=== PATIENT | female | born 1955 | race Caucasian/White ===

== ENCOUNTER 2017-11-01 17:32 | Emergency (ER) | payer OTHER ==
[2017-11-01 19:53] LABS: Basophils % (A) 0 %; Eosinophils # (A) 0.1 k/uL (0-0.7); Eosinophils % (A) 1 %; HCT 42.1 % (34.0-46.0); HGB 14.2 gm/dL (11.4-16.0); Lymphocytes % (A) 17 %; MCHC 33.6 g/dL (31.0-37.0); MCV 92.3 fL (80.0-100.0); Mean Platelet Volume 6.1; Monocytes # (A) 0.4 k/uL (0-1.0); Monocytes % (A) 6 %; Neutrophils # (A) 4.6 k/uL (1.3-7.7); Neutrophils % (A) 75 %; Platelet Count 488 k/uL (150-450); RBC 4.56 m/uL (3.80-5.40); RDW 12.5 % (11.5-15.5); WBC 6.2 k/uL (3.8-10.6)
[2017-11-01 20:02] LABS: ALT 16 U/L (9-52); AST 24 U/L (14-36); Alkaline Phosphatase 95 U/L (38-126); Anion Gap 12 mmol/L; Blood Urea Nitrogen 9 mg/dL (7-17); Calcium 9.8 mg/dL (8.4-10.2); Carbon Dioxide 30 mmol/L (22-30); Chloride 96 mmol/L (98-107); Glucose 104 mg/dL (74-99); Sodium 138 mmol/L (137-145); Total Bilirubin 0.4 mg/dL (0.2-1.3); Total Protein 7.2 g/dL (6.3-8.2)
[2017-11-01 20:06] LABS: D-Dimer 0.33 mg/L FEU (<0.60); INR 1.1 (<1.2); Partial Thromboplastin Time 23.8 sec (22.0-30.0); Prothrombin Time 10.5 sec (9.0-12.0)
--- NOTE | 2017-11-01 20:16 | ED ---
General Adult HPI - General Chief complaint: Recheck/Abnormal Lab/Rx Stated complaint: Swollen ankles Time Seen by Provider: 11/01/17 19:09 Source: patient Mode of arrival: ambulatory Limitations: no limitations - History of Present Illness Initial comments: This patient is 61-year-old woman who presents to be evaluated for swelling of her hands and feet. She states that this is something that is been going on since early September. She noticed it when she was in [place] for the winter. She states that initially she noticed her right hand was fitting tighter until bowling ball. Subsequent to that she noticed some swelling bilaterally of the feet. She has not sought any medical attention. The patient denies any associated symptoms. She is not having dyspnea or cough. She finally decided to be seen today after family members urged her to be seen. Onset/Timin -: month(s) Location: upper extremity, lower extremity Consistency: constant Improves with: none Worsens with: none Associated Symptoms: denies other symptoms - Related Data Home Medications Medication Instructions Recorded Confirmed Cholecalciferol [Vitamin D3] 1,000 unit PO DAILY 11/01/17 11/01/17 Cinnamon Bark [Cinnamon] 500 mg PO DAILY 11/01/17 11/01/17 Multivitamins, Thera [Multivitamin 1 tab PO DAILY 11/01/17 11/01/17 (formulary)] diphenhydrAMINE HCL [Benadryl] 25 mg PO HS PRN 11/01/17 11/01/17 Previous Rx's Medication Instructions Recorded Levofloxacin [Levaquin] 500 mg PO DAILY #7 tab 11/01/17 Sulfamethox-Tmp 800-160Mg [Bactrim 1 each PO Q12HR #6 tab 11/01/17 Ds] Allergies Allergy/AdvReac Type Severity Reaction Status Date / Time No Known Allergies Allergy Verified 11/01/17 19:21 Review of Systems ROS Statement: Those systems with pertinent positive or pertinent negative responses have been documented in the HPI. ROS Other: All systems not noted in ROS Statement are negative. Constitutional: Denies: fever, chills, weakness Respiratory: Denies: cough, dyspnea Cardiovascular: Denies: chest pain, palpitations Gastrointestinal: Denies: abdominal pain, nausea, vomiting Genitourinary: Denies: dysuria, hematuria Musculoskeletal: Denies: back pain Skin: Denies: rash Neurological: Denies: headache Past Medical History Past Medical History: No Reported History History of Any Multi-Drug Resistant Organisms: None Reported Past Surgical History: No Surgical Hx Reported Past Psychological History: No Psychological Hx Reported Smoking Status: Current every day smoker Past Alcohol Use History: Occasional Past Drug Use History: None Reported General Exam Limitations: no limitations General appearance: alert, in no apparent distress, cachectic Head exam: Present: atraumatic, normocephalic Eye exam: Present: normal appearance. Absent: scleral icterus, conjunctival injection ENT exam: Present: normal oropharynx Neck exam: Present: normal inspection, full ROM Respiratory exam: Present: normal lung sounds bilaterally. Absent: respiratory distress, wheezes, rales, rhonchi, stridor Cardiovascular Exam: Present: normal rhythm, tachycardia (The rate is 104 on exam), normal heart sounds. Absent: systolic murmur, diastolic murmur, rubs, gallop GI/Abdominal exam: Present: soft. Absent: distended, tenderness, guarding, rebound, mass Extremities exam: Present: normal inspection, normal capillary refill, pedal edema (There is only trace edema at the ankle B). Absent: calf tenderness Back exam: Present: normal inspection Neurological exam: Present: alert Skin exam: Present: warm, dry, intact, normal color. Absent: rash Course Vital Signs 11/01/17 11/01/17 11/01/17 18:56 19:58 21:00 Temperature 99.4 F Pulse Rate 122 H 120 H 115 H Respiratory 18 19 16 Rate Blood Pressure 128/65 119/72 112/62 O2 Sat by Pulse 97 96 96 Oximetry EKG Findings - EKG Results: EKG: interpreted by JOSEFINA, sinus rhythm, normal axis, normal QRS, normal ST/T EKG shows: tachycardia (Rate approximately 118 bpm) Medical Decision Making - Lab Data Result diagrams: 11/01/17 19:41 11/01/17 19:41 Lab Results 11/01/17 11/01/17 11/01/17 Range/Units 19:41 19:41 19:41 WBC 6.2 (3.8-10.6) k/uL RBC 4.56 (3.80-5.40) m/uL Hgb 14.2 (11.4-16.0) gm/dL Hct 42.1 (34.0-46.0) % MCV 92.3 (80.0-100.0) fL MCH 31.0 (25.0-35.0) pg MCHC 33.6 (31.0-37.0) g/dL RDW 12.5 (11.5-15.5) % Plt Count 488 H (150-450) k/uL Neutrophils % 75 % Lymphocytes % 17 % Monocytes % 6 % Eosinophils % 1 % Basophils % 0 % Neutrophils # 4.6 (1.3-7.7) k/uL Lymphocytes # 1.0 (1.0-4.8) k/uL Monocytes # 0.4 (0-1.0) k/uL Eosinophils # 0.1 (0-0.7) k/uL Basophils # 0.0 (0-0.2) k/uL PT (9.0-12.0) sec INR (<1.2) APTT (22.0-30.0) sec D-Dimer (<0.60) mg/L FEU Sodium 138 (137-145) mmol/L Potassium 4.0 (3.5-5.1) mmol/L Chloride 96 L (98-107) mmol/L Carbon Dioxide 30 (22-30) mmol/L Anion Gap 12 mmol/L BUN 9 (7-17) mg/dL Creatinine 0.50 L (0.52-1.04) mg/dL Est GFR (CKD-EPI)AfAm >90 (>60 ml/min/1.73 sqM) Est GFR (CKD-EPI)NonAf >90 (>60 ml/min/1.73 sqM) Glucose 104 H (74-99) mg/dL Plasma Lactic Acid [place] 0.8 (0.7-2.0) mmol/L Calcium 9.8 (8.4-10.2) mg/dL Magnesium 2.0 (1.6-2.3) mg/dL Total Bilirubin 0.4 (0.2-1.3) mg/dL AST 24 (14-36) U/L ALT 16 (9-52) U/L Alkaline Phosphatase 95 (38-126) U/L Troponin I (0.000-0.034) ng/mL NT-Pro-B Natriuret Pep pg/mL Total Protein 7.2 (6.3-8.2) g/dL Albumin 4.0 (3.5-5.0) g/dL TSH 0.658 (0.465-4.680) mIU/L Urine Color Urine Appearance (Clear) Urine pH (5.0-8.0) Ur Specific [place] (1.001-1.035) Urine Protein (Negative) Urine Glucose (UA) (Negative) Urine Ketones (Negative) Urine Blood (Negative) Urine Nitrite (Negative) Urine Bilirubin (Negative) Urine Urobilinogen (<2.0) mg/dL Ur Leukocyte Esterase (Negative) Urine RBC (0-5) /hpf Urine WBC (0-5) /hpf Ur Squamous Epith Cells (0-4) /hpf Urine Bacteria (None) /hpf Urine Mucus (None) /hpf 11/01/17 11/01/17 11/01/17 Range/Units 19:41 19:41 19:41 WBC (3.8-10.6) k/uL RBC (3.80-5.40) m/uL Hgb (11.4-16.0) gm/dL Hct (34.0-46.0) % MCV (80.0-100.0) fL MCH (25.0-35.0) pg MCHC (31.0-37.0) g/dL RDW (11.5-15.5) % Plt Count (150-450) k/uL Neutrophils % % Lymphocytes % % Monocytes % % Eosinophils % % Basophils % % Neutrophils # (1.3-7.7) k/uL Lymphocytes # (1.0-4.8) k/uL Monocytes # (0-1.0) k/uL Eosinophils # (0-0.7) k/uL Basophils # (0-0.2) k/uL PT 10.5 (9.0-12.0) sec INR 1.1 (<1.2) APTT 23.8 (22.0-30.0) sec D-Dimer 0.33 (<0.60) mg/L FEU Sodium (137-145) mmol/L Potassium (3.5-5.1) mmol/L Chloride (98-107) mmol/L Carbon Dioxide (22-30) mmol/L Anion Gap mmol/L BUN (7-17) mg/dL Creatinine (0.52-1.04) mg/dL Est GFR (CKD-EPI)AfAm (>60 ml/min/1.73 sqM) Est GFR (CKD-EPI)NonAf (>60 ml/min/1.73 sqM) Glucose (74-99) mg/dL Plasma Lactic Acid [place] (0.7-2.0) mmol/L Calcium (8.4-10.2) mg/dL Magnesium (1.6-2.3) mg/dL Total Bilirubin (0.2-1.3) mg/dL AST (14-36) U/L ALT (9-52) U/L Alkaline Phosphatase (38-126) U/L Troponin I <0.012 (0.000-0.034) ng/mL NT-Pro-B Natriuret Pep 546 pg/mL Total Protein (6.3-8.2) g/dL Albumin (3.5-5.0) g/dL TSH (0.465-4.680) mIU/L Urine Color Urine Appearance (Clear) Urine pH (5.0-8.0) Ur Specific [place] (1.001-1.035) Urine Protein (Negative) Urine Glucose (UA) (Negative) Urine Ketones (Negative) Urine Blood (Negative) Urine Nitrite (Negative) Urine Bilirubin (Negative) Urine Urobilinogen (<2.0) mg/dL Ur Leukocyte Esterase (Negative) Urine RBC (0-5) /hpf Urine WBC (0-5) /hpf Ur Squamous Epith Cells (0-4) /hpf Urine Bacteria (None) /hpf Urine Mucus (None) /hpf 11/01/17 Range/Units 20:37 WBC (3.8-10.6) k/uL RBC (3.80-5.40) m/uL Hgb (11.4-16.0) gm/dL Hct (34.0-46.0) % MCV (80.0-100.0) fL MCH (25.0-35.0) pg MCHC (31.0-37.0) g/dL RDW (11.5-15.5) % Plt Count (150-450) k/uL Neutrophils % % Lymphocytes % % Monocytes % % Eosinophils % % Basophils % % Neutrophils # (1.3-7.7) k/uL Lymphocytes # (1.0-4.8) k/uL Monocytes # (0-1.0) k/uL Eosinophils # (0-0.7) k/uL Basophils # (0-0.2) k/uL PT (9.0-12.0) sec INR (<1.2) APTT (22.0-30.0) sec D-Dimer (<0.60) mg/L FEU Sodium (137-145) mmol/L Potassium (3.5-5.1) mmol/L Chloride (98-107) mmol/L Carbon Dioxide (22-30) mmol/L Anion Gap mmol/L BUN (7-17) mg/dL Creatinine (0.52-1.04) mg/dL Est GFR (CKD-EPI)AfAm (>60 ml/min/1.73 sqM) Est GFR (CKD-EPI)NonAf (>60 ml/min/1.73 sqM) Glucose (74-99) mg/dL Plasma Lactic Acid [place] (0.7-2.0) mmol/L Calcium (8.4-10.2) mg/dL Magnesium (1.6-2.3) mg/dL Total Bilirubin (0.2-1.3) mg/dL AST (14-36) U/L ALT (9-52) U/L Alkaline Phosphatase (38-126) U/L Troponin I (0.000-0.034) ng/mL NT-Pro-B Natriuret Pep pg/mL Total Protein (6.3-8.2) g/dL Albumin (3.5-5.0) g/dL TSH (0.465-4.680) mIU/L Urine Color Light Yellow Urine Appearance Cloudy H (Clear) Urine pH 6.0 (5.0-8.0) Ur Specific [place] 1.006 (1.001-1.035) Urine Protein Trace H (Negative) Urine Glucose (UA) Negative (Negative) Urine Ketones Negative (Negative) Urine Blood Moderate H (Negative) Urine Nitrite Negative (Negative) Urine Bilirubin Negative (Negative) Urine Urobilinogen <2.0 (<2.0) mg/dL Ur Leukocyte Esterase Large H (Negative) Urine RBC 6 H (0-5) /hpf Urine WBC 40 H (0-5) /hpf Ur Squamous Epith Cells 3 (0-4) /hpf Urine Bacteria Rare H (None) /hpf Urine Mucus Rare H (None) /hpf Disposition Clinical Impression: Edema, Urinary tract infection, Tachycardia, Pneumonia Disposition: HOME SELF-CARE Condition: Good Instructions: Leg Edema (ED) Prescriptions: Levofloxacin [Levaquin] 500 mg PO DAILY #7 tab Sulfamethox-Tmp 800-160Mg [Bactrim Ds] 1 each PO Q12HR #6 tab Referrals: Blanca Moscoso MD [Primary Care Provider] - 1-2 days
--- NOTE | 2017-11-01 20:27 | XR ---
EXAMINATION TYPE: XR chest 1V portable DATE OF EXAM: 11/01/2017 COMPARISON: NONE HISTORY: Headache TECHNIQUE: Single frontal view of the chest is obtained. FINDINGS: There is some infiltrate in the left upper lobe above the left pulmonary hilum extending t o the lung apex. The other lung posey are clear. Heart size is normal. There is no heart failure. IMPRESSION: Left upper lobe infiltrate consistent with pneumonia.
[2017-11-01 21:12] VITALS: RESP 16
[2017-11-01 21:54] LABS: Appearance,Urine Cloudy (Clear); Bacteria,Urine Rare /hpf; Bilirubin,Urine Negative (Negative); Blood,Urine Moderate (Negative); Color,Urine Light Yellow; Glucose,Urine (UA) Negative (Negative); Ketones,Urine Negative (Negative); Leukocyte Esterase,Urine Large (Negative); Mucus,Urine Rare /hpf; Nitrite,Urine Negative (Negative); Protein,Urine Trace (Negative); RBC,Urine 6 /hpf (0-5); Specific Gravity,Urine 1.006 (1.001-1.035); Squamous Epithelial Cell,Urine 3 /hpf (0-4); Urobilinogen,Urine <2.0 mg/dL (<2.0); WBC,Urine 40 /hpf (0-5)
[2017-11-01] MEDS ORDERED: SULFAMETHOX-TMP 800-160MG 1 EACH TAB PO STA (22:07)
[2017-11-01 22:33] VITALS: BP 119/59; PULSE 100; TEMP 99
== END 2017-11-01 22:33 | disposition home or self-care (01) ==
LOC: EC 17:32
DX: J18.9 Pneumonia, unspecified organism (principal); N39.0 Urinary tract infection, site not specified; R00.0 Tachycardia, unspecified; R60.0 Localized edema; F17.200 Nicotine dependence, unspecified, uncomplicated; Z79.899 Other long term (current) drug therapy
CPT/HCPCS: 36415; 71045; 80053; 81001; 83605; 83735; 83880; 84443; 84484; 85025; 85379; 85610; 85730; 93005; 99284

== ENCOUNTER → 2017-11-18 | Outpatient (CLI) | payer OTHER ==
[2017-11-18 19:22] LABS: ALT 20 U/L (9-52); AST 31 U/L (14-36); Alkaline Phosphatase 100 U/L (38-126); Anion Gap 13 mmol/L; Blood Urea Nitrogen 6 mg/dL (7-17); Calcium 9.5 mg/dL (8.4-10.2); Carbon Dioxide 31 mmol/L (22-30); Chloride 95 mmol/L (98-107); Cholesterol 156 mg/dL (<200); Glucose 105 mg/dL (74-99); HDL Cholesterol 59 mg/dL (40-60); LDL Cholesterol,Calculated 83 mg/dL (0-99); Potassium 4.2 mmol/L (3.5-5.1); Sodium 139 mmol/L (137-145); Total Bilirubin 0.4 mg/dL (0.2-1.3); Triglycerides 71 mg/dL (<150)
[2017-11-18 19:38] LABS: T4, Free (Free Thyroxine) 1.71 ng/dL (0.78-2.19)
[2017-11-18 21:45] LABS: Basophils % (A) 0 %; Eosinophils # (A) 0.1 k/uL (0-0.7); Eosinophils % (A) 1 %; HCT 40.6 % (34.0-46.0); HGB 13.4 gm/dL (11.4-16.0); Lymphocytes # (A) 1.5 k/uL (1.0-4.8); Lymphocytes % (A) 22 %; MCH 31.2 pg (25.0-35.0); MCV 94.5 fL (80.0-100.0); Mean Platelet Volume 7.7; Monocytes # (A) 0.4 k/uL (0-1.0); Monocytes % (A) 7 %; Neutrophils # (A) 4.7 k/uL (1.3-7.7); Neutrophils % (A) 69 %; Platelet Count 513 k/uL (150-450); RBC 4.29 m/uL (3.80-5.40); RDW 12.4 % (11.5-15.5); WBC 6.7 k/uL (3.8-10.6)
== END | disposition home or self-care (01) ==
LOC: MMGSC 14:06
PROVIDERS: ATTEND Family Medicine
DX: Z00.00 Encounter for general adult medical examination without abnormal findings (principal); N39.0 Urinary tract infection, site not specified; R60.0 Localized edema
CPT/HCPCS: 36415; 80053; 80061; 83880; 84439; 84443; 85025; 87086

== ENCOUNTER → 2018-01-01 | Outpatient (CLI) | payer OTHER ==
--- NOTE | 2018-01-02 07:57 | PE ---
EXAMINATION TYPE: PET CT fusion skull to thigh DATE OF EXAM: 01/01/2018 COMPARISON: Chest x-ray November 01, 2017 HISTORY: Solitary pulmonary nodule per order. Abnormal x-ray with multiple nodules. TECHNIQUE: Following the intravenous administration of 13.411 mCi of F-18 FDG, whole body images are performed from the skull base to the midthigh. Images are reviewed on the computer in the coronal, axial, and sagittal planes. Reconstructed rotating images are created on independent workstation and reviewed on the computer. A noncontrast CT is performed in conjunction with the PET scan. SCAN: Initial Scan FINDINGS: SKULL BASE AND NECK: No suspicious hypermetabolic uptake is seen CHEST, MEDIASTINUM, AND HILAR REGION: There is background chronic emphysematous change seen bilateral ly. Throughout the left lung there are irregular areas of reticulation and groundglass opacity with m ore maureen consolidation seen anteriorly and inferiorly, there is involvement of the left upper lobe a nd lingula. There is tiny ametabolic left pleural effusion. There are areas of hypermetabolic uptake near the hilum with max SUV 7.07 axial image 92 and in the periphery of the areas of consolidation pr ominent lateral left upper to midlung. The max SUV is 5.31 centrally in the left lung axial image 84. There is abnormal hypermetabolic prevascular lymph node measuring 1.6 x 1.2 cm axial image 88 with ma x SUV 3.58. No suspicious hypermetabolic uptake is seen in the right lung. ABDOMEN AND PELVIS: There is hypermetabolic left adrenal mass measuring 3.5 x 2.1 cm axial image 142, max SUV is 5.27. Normal excretion in the collecting systems and bladder is present. No additional areas of abnormal hy permetabolic uptake are seen. OSSEOUS STRUCTURES: No suspicious hypermetabolic uptake is present. OTHER CT: Deformity near inferior lateral wall of right maxillary sinus may be product of prior molar tooth and/or surgery. Some calcified left infrahilar lymph nodes are seen. There is 1.8 cm simple appearing cyst right hepatic dome. There is mild calcified plaque in the abdominal aorta. There is linear central IUD in the retroverted uterus. There is multilevel spurring in the spine. There is facet arthropathy lower lumbar levels. IMPRESSION: Findings of nonresolving hypermetabolic left upper and lingular consolidation with left h ilar and AP window involvement along with hypermetabolic left adrenal mass is strongly suspicious for malignancy. Advise bronchoscopy with sampling to confirm.
== END | disposition home or self-care (01) ==
LOC: RADPETMAIN 16:38
PROVIDERS: ATTEND Internal Medicine Critical Care Medicine
DX: E27.9 Disorder of adrenal gland, unspecified (principal); R91.8 Other nonspecific abnormal finding of lung field
CPT/HCPCS: 78815; A9552

== ENCOUNTER 2018-01-12 08:18 | Day surgery (SDC) | payer OTHER ==
[2018-01-12 08:57] LABS: Mean Platelet Volume 6.1; Platelet Count 623 k/uL (150-450)
[2018-01-12 09:05] VITALS: RESP 16
[2018-01-12 09:07] LABS: INR 1.1 (<1.2); Prothrombin Time 10.3 sec (9.0-12.0)
[2018-01-12] MEDS ORDERED: ALPRAZolam 0.5 MG TAB PO STA (09:09)
[2018-01-12] MEDS ORDERED: ACETAMINOPHEN TAB 500 MG TAB PO STA (10:41)
--- NOTE | 2018-01-12 11:27 | CT ---
EXAMINATION TYPE: CT biopsy adrenal gland, fine-needle aspiration and core biopsy of left adrenal gla nd mass DATE OF EXAM: 01/12/2018 HISTORY: Left adrenal mass COMPARISON: NONE Maximal barrier technique was utilized. The skin overlying a suitable path to the lesion was localiz ed using CT and the overlying skin was prepped and draped. Lidocaine used for local anesthesia. A s kin rhianna made with a scalpel. Using CT guidance, access was gained to the lesion with a 17-gauge татьяна de needle. 2 passes with a 22-gauge needle were made into the lesion. Aspirated specimen submitted to cytology. Subsequently 2 core specimens obtained with an 18-gauge needle coaxially. 4 passes were pe rformed in all. Following the procedure no immediate complications. The patient is discharged in s table condition. Hemostasis achieved. IMPRESSION: SUCCESSFUL CT GUIDED FINE-NEEDLE ASPIRATION AND CORE BIOPSY. PATHOLOGY PENDING. THIS PROCEDURE WAS PERFORMED BY THE UNDERSIGNED.
[2018-01-12 12:38] VITALS: BP 109/63; PULSE 114; TEMP 99
== END 2018-01-12 12:38 | disposition home or self-care (01) ==
LOC: RADPROMAIN 08:18
PROVIDERS: ATTEND Internal Medicine Critical Care Medicine
DX: C79.72 Secondary malignant neoplasm of left adrenal gland (principal)
CPT/HCPCS: 10022; 60699; 77012; 85049; 85610; 88173; 88305; 88341; 88342

== ENCOUNTER → 2018-01-19 | Outpatient (CLI) | payer OTHER ==
--- NOTE | 2018-01-19 12:33 | MR ---
EXAMINATION TYPE: MR brain wo/w con DATE OF EXAM: 01/19/2018 COMPARISON: NONE HISTORY: Lung ca, mets TECHNIQUE: Multiplanar, multisequence images of the brain and brainstem is performed without and with IV contras t, utilizing 4.5 mL intravenous Gadavist . FINDINGS: Diffusion weighted images demonstrate no evidence of a recent infarct or other diffusion ab normality. There are 5 masses enhancing within the cerebellum with the largest measuring 5 mm seen scattered lotus aterally. There is a 5 mm area of enhancement involving the left midbrain. There are approximately 30 enhancing lesions within the suprapatellar tentorium portion of the brain with the largest seen in the right parietal lobe posterior demonstrating ring enhancement and measuri ng 1.1 x 1.2 x 0.9 cm with surrounding vasogenic edema. No midline shift. Lesions are seen scattered bilaterally throughout both cerebral hemispheres including the deep [place] matter. There also is a area of vasogenic edema involving 5 mm lesions within the right temporal and right occipital lobes. Findi ngs compatible with widespread intracranial metastases. Mild to moderate generalized degenerative change is seen and there are areas of abnormal signal the w ted matter which are nonspecific but most typical of remote microvascular ischemia. Midline structures demonstrate normal morphology. The craniocervical junction appears within normal limits. Post contrast images demonstrate no abnormal enhancement. The dural venous sinuses appear p atent. Changes of chronic sinusitis noted. IMPRESSION: 1. Diffuse intracranial metastases with approximately 30 enhancing lesions identified in the largest within the right parietal lobe measuring 1.1 x 1.2 cm.
== END | disposition home or self-care (01) ==
LOC: RADMRIMAIN 10:54
PROVIDERS: ATTEND Radiology Radiation Oncology
DX: C34.31 Malignant neoplasm of lower lobe, right bronchus or lung (principal); C79.31 Secondary malignant neoplasm of brain
CPT/HCPCS: 82565; 70553; A9581

== ENCOUNTER → 2018-03-28 | Outpatient (CLI) | payer OTHER ==
--- NOTE | 2018-03-28 16:48 | MR ---
EXAMINATION TYPE: MR brain wo/w con DATE OF EXAM: 03/28/2018 COMPARISON: Prior brain MRI 01/19/2018 HISTORY: Lung CA,mets TECHNIQUE: Multiplanar, multisequence images of the brain and brainstem is performed without and with IV contras t, utilizing 4.5 mL intravenous Gadavist . FINDINGS: Diffusion weighted images demonstrate no evidence of a recent infarct or other diffusion ab normality. There is no extra-axial fluid collection. There are multiple ring-enhancing foci within the brain, vasogenic edema is present at the right marco antonio etal region posteriorly due to ring-enhancing lesion measuring approximately 11 mm the posterior righ t parietal lobe. There are at least 15 lesions present in the cerebellum, jensen, supratentorial brain, similar to prior exam but decreased in size. Scattered hyperintensities also noted on T2 and inversi on recovery sequences possibly related to chronic small vessel ischemia. Midline structures demonstrate normal morphology. The craniocervical junction appears within normal limits. Post contrast images demonstrate no abnormal enhancement. The dural venous sinuses appear pa tent. The visualized sinuses are remarkable for inflammatory change in the bilateral maxillary sinuse s and left mastoid air cells and the globes are intact. IMPRESSION: Brain metastases have decreased in size.
== END | disposition home or self-care (01) ==
LOC: RADMRIMAIN 12:17
PROVIDERS: ATTEND Radiology Radiation Oncology
DX: C34.12 Malignant neoplasm of upper lobe, left bronchus or lung (principal); C79.72 Secondary malignant neoplasm of left adrenal gland; C79.31 Secondary malignant neoplasm of brain
CPT/HCPCS: 70553; A9581

== ENCOUNTER → 2018-05-02 | Outpatient (CLI) | payer OTHER ==
[2018-05-02 11:17] LABS: Blood Urea Nitrogen 9 mg/dL (7-17)
--- NOTE | 2018-05-02 14:06 | CT ---
EXAMINATION TYPE: CT ChestAbdPelvis w con DATE OF EXAM: 05/02/2018 COMPARISON: Nuclear medicine PET/CT 01/01/2018 HISTORY: Breast/lung/adrenal CA follow up CT DLP: 674 mGycm Automated exposure control for dose reduction was used. CONTRAST: CT scan of the chest, abdomen and pelvis is performed with Oral Contrast and with IV Contrast, patien t injected with 100 mL of Isovue 300. FINDINGS: LUNGS: Left upper lobe mass has become somewhat more confluent, there is atelectasis present intersti tial bands also noted in the left upper lobe, underlying emphysema is again noted. The mass extends f rom the level of the mediastinum to the anterior pleural surface and inferiorly to the hilum, is abno rmal thickening of the bronchi. Mass measures approximately 12.2 x 5.8 x 3.5 cm Nodular density prese nt at the right costophrenic angle on axial image 56 is not well seen. There is a small left pleural effusion. MEDIASTINUM: Prevascular necrotic nodes suspected. Retrocrural lymph node is enlarged and shows centr al low density likely due to necrosis. AORTA: No significant abnormality is seen. OTHER: Port-A-Cath present in the right pectoral region, catheter courses via a right internal jugul ar vein to the level of the superior vena cava. LIVER/GB: Multiple subcentimeter low dense foci scattered within the liver, largest measures roughly 9 mm axial image 58 in the right lobe and 10 mm within the left lobe axial image 54, gallbladder is n ormal. PANCREAS: No significant abnormality is seen. SPLEEN: No significant abnormality is seen. ADRENALS: Bilateral adrenal gland shows abnormal thickening, left adrenal gland measures approximate 5.8 x 3 cm x 4.7 cm, right adrenal gland measures approximately 4.7 x 5 x 2.2 cm. KIDNEYS: No significant abnormality is seen. REPRODUCTIVE ORGANS: There is metallic density present in the distraction of the uterus possibly intr auterine contraceptive device. BOWEL: Abnormal soft tissue densities present about the cecum and ascending colon which is poorly de fined. FREE AIR: No Free Air visible. ASCITES: None seen. RETROPERITONEAL ADENOPATHY: No retroperitoneal adenopathy is seen. LYMPH NODES: No greater than 1 cm abdominal or pelvic lymph nodes are appreciated. URINARY BLADDER: No significant abnormality is seen. PELVIC ADENOPATHY: None visualized. OSSEOUS STRUCTURES: No significant abnormality is seen. IMPRESSION: Findings compatible with metastatic disease as described.
== END ==
LOC: RADPROMAIN 10:35
PROVIDERS: ATTEND Internal Medicine Hematology & Oncology
DX: C34.12 Malignant neoplasm of upper lobe, left bronchus or lung (principal)
CPT/HCPCS: 82565; 84520; 71260; 74177; J1642; Q9967

== ENCOUNTER → 2018-06-13 | Outpatient (CLI) | payer OTHER ==
--- NOTE | 2018-06-14 01:35 | MR ---
EXAMINATION TYPE: MR brain wo/w con DATE OF EXAM: 06/13/2018 COMPARISON: 03/21/1718 HISTORY: Lung ca, Mets TECHNIQUE: Multiplanar, multisequence images of the brain and brainstem is performed without and with IV contras t, utilizing 4.5 mL intravenous Gadavist . FINDINGS: There is 2.7 cm area of edema in the right posterior parietal lobe with a small nodular rin g-enhancing focus that measures 7 mm. This measures 11 mm on previous exam. There is 4 mm nodular enh ancing focus in the medial right occipital lobe cortex. There is no mass effect nor midline shift. Th ere is no sign of intracranial hemorrhage. On the FLAIR images there is patchy nonenhancing increased signal in the periventricular white matter. These foci measure up to 6 mm and portal number is less than 20. There are two 3 mm foci of nodular enhancement in the anterior right temporal lobe. There is 2 mm focus of enhancement on the left side of the jensen. There is 4 mm enhancing focus base o f the right frontal lobe. There are 2 tiny foci of enhancement in the anterior thalamus left side. Th ere is 3 mm enhancing focus medial left occipital lobe cortex. IMPRESSION: Multiple foci of enhancement consistent with metastatic disease. These appear all decreas ed in size compared to last exam. No new focus of enhancement or increased lesion. White matter foci around the lateral ventricles consistent with chronic small vessel ischemia or demy elinating disease unchanged.
== END | disposition home or self-care (01) ==
LOC: RADMRIMAIN 12:45
PROVIDERS: ATTEND Radiology Radiation Oncology
DX: C34.12 Malignant neoplasm of upper lobe, left bronchus or lung (principal); R90.89 Other abnormal findings on diagnostic imaging of central nervous system; C79.72 Secondary malignant neoplasm of left adrenal gland; Z92.3 Personal history of irradiation
CPT/HCPCS: 70553; A9585

== ENCOUNTER → 2018-07-15 | Outpatient (CLI) | payer OTHER ==
[2018-07-15 11:36] LABS: Blood Urea Nitrogen 9 mg/dL (7-17)
--- NOTE | 2018-07-15 13:56 | CT ---
EXAMINATION TYPE: CT ChestAbdPelvis w con DATE OF EXAM: 07/15/2018 COMPARISON: CT chest abdomen pelvis 05/02/2018 HISTORY: History of lung and adrenal gland cancer. CT DLP: 429.2 mGycm Automated exposure control for dose reduction was used. CONTRAST: CT scan of the chest, abdomen and pelvis is performed with Oral Contrast and with IV Contrast, patien t injected with 90 mL of Isovue M300. FINDINGS: LUNGS: The mass in the left upper lobe measures approximately 5.9 x 13.4 x 3.2 cm. Previous measureme nt was approximately 12 x 0.2 x 2.9 cm. Mass extends to the left hilum and into the mediastinum, more inferiorly soft tissue mass abutting the mediastinum measures 15 mm and measured approximately 11 mm on prior. The left pleural effusion has increased in size slightly. MEDIASTINUM: Abnormal soft tissue extends to the left pulmonary artery and prevascular space. Subcari nal adenopathy thought to have progressed. AORTA: No significant abnormality is seen. OTHER: No additional significant abnormality is seen. LIVER/GB: Largest mass within the left lobe medial segment measuring 18 mm on prior exam and now joselyn ures approximately 3.1 cm. Multiple additional low dense foci are present silhouette show enhancing w alls, there are new areas of enhancement in the lateral segment of the left lobe not seen on prior. A dditional new varied-sized lesions are seen. PANCREAS: No significant abnormality is seen. SPLEEN: No significant abnormality is seen. ADRENALS: Right adrenal mass measures approximately 5.2 x 2.3 cm in the axial plane by 6.3 cm, left a drenal mass approximately 7.4 x 2.2 x 4.8 cm present prior exam the right adrenal mass measured 2.1 x 5 x 4.6 cm in the left adrenal mass 1.9 x 5.8 x 4.7 cm. KIDNEYS: No significant abnormality is seen. REPRODUCTIVE ORGANS: Intrauterine contraceptive device is present.. BOWEL: No significant abnormality is seen. FREE AIR: No Free Air visible. ASCITES: None seen. RETROPERITONEAL ADENOPATHY: No retroperitoneal adenopathy is seen. LYMPH NODES: No greater than 1 cm abdominal or pelvic lymph nodes are appreciated. URINARY BLADDER: No significant abnormality is seen. PELVIC ADENOPATHY: None visualized. OSSEOUS STRUCTURES: No significant abnormality is seen. IMPRESSION: Progression of patient's metastatic disease..
== END | disposition home or self-care (01) ==
LOC: RADPROMAIN 10:34
PROVIDERS: ATTEND Internal Medicine Hematology & Oncology
DX: C34.12 Malignant neoplasm of upper lobe, left bronchus or lung (principal)
CPT/HCPCS: 82565; 84520; 71260; 74177; 36415; J1642; Q9967

== ENCOUNTER → 2018-11-18 | Outpatient (CLI) | payer BC ==
--- NOTE | 2018-11-18 15:43 | MR ---
EXAMINATION TYPE: MR brain wo/w con DATE OF EXAM: 11/18/2018 COMPARISON: 01/19/2018 and 06/13/2018 HISTORY: Lung CA mets TECHNIQUE: Multiplanar, multisequence images of the brain and brainstem is performed without and with IV contras t, utilizing 4 mL intravenous Gadavist . FINDINGS: There is redemonstration of a 7 mm peripherally enhancing mass in the right posterior parietal lobe w ith surrounding vasogenic edema unchanged from the prior of 06/13/2018. The right medial occipital lobe lesion is less conspicuous than on the prior on postcontrast image 35 . This again measures approximately 3 to 4 mm. Within the right frontal gyrus rectus the 3 mm lesion has slightly decreased in size and conspicuity. There is stability of the 1 to 2 mm left cerebellar h emisphere lobe seen medially on image 21. The left pontine and midbrain lesions are much less conspic uous on today's examination. Midbrain lesion is marked on image 33. Within the precentral gyrus of th e left frontal lobe there is a 2 mm lesion that appears more conspicuous than on the prior. Within th e left frontal lobe near the vertex in the superior gyrus there is a punctate focus of possible addit ional abnormal enhancement on image 65. Diffusion weighted images demonstrate no evidence of a recent infarct or other diffusion abnormality. There is no extra-axial fluid collection. In addition to the right posterior parietal vasogenic tatiana ma numerous foci of T2/FLAIR hyperintensity are scattered throughout the periventricular and subcorti maciel white matter compatible with moderate burden nonspecific white matter change. The ventricular sy stem and cisternal spaces are symmetrically prominent compatible with age-related volume loss. Midline structures demonstrate normal morphology. The craniocervical junction appears within normal limits. Mastoid air cells are fluid-filled bilaterally. Scant mucosal thickening within the ethmoid s inuses are seen. Mild mucosal thickening in the dependent maxillary sinuses is also present. Remainin g visualized paranasal sinuses are well aerated. IMPRESSION: 1. Stable size of the known multiple intracranial metastatic foci with the largest in the right poste rior parietal lobe with surrounding vasogenic edema. Some of these have decreased in conspicuity sing le lesion becoming slightly more conspicuous (although measuring only 2 mm). 2. Bilateral mastoid air cells are entirely fluid filled. Correlate with point tenderness to exclude mastoiditis. Overall mild pansinusitis is also seen. 3. Moderate burden nonspecific white matter change in addition to the right parietal vasogenic edema. No midline shift.
== END | disposition home or self-care (01) ==
LOC: RADMRIMAIN 10:57
PROVIDERS: ATTEND Radiology Radiation Oncology
DX: C79.31 Secondary malignant neoplasm of brain (principal); C34.12 Malignant neoplasm of upper lobe, left bronchus or lung; C79.72 Secondary malignant neoplasm of left adrenal gland; Z92.3 Personal history of irradiation
CPT/HCPCS: 70553; A9585

== ENCOUNTER 2018-12-10 14:36 | Inpatient (IN) | payer BC ==
[2018-12-10 14:45] LABS: Glucose,Whole Blood 86 mg/dL (75-99)
[2018-12-10] MEDS ORDERED: SODIUM CHLORIDE 0.9% 1,000 ML IV STA ×3 (14:51→16:15)
[2018-12-10] MEDS ORDERED: SODIUM CHLORIDE 0.9% 500 ML 500 ML IV STA (14:59)
[2018-12-10] MEDS ORDERED: IPRATROPIUM-ALBUTEROL 3 ML NEB INHALATION STA (15:00)
[2018-12-10 15:44] LABS: Anisocytosis Slight; Basophils % (A) 0 %; Eosinophils # (A) 0.1 k/uL (0-0.7); Eosinophils % (A) 2 %; HCT 26.1 % (34.0-46.0); HGB 8.8 gm/dL (11.4-16.0); Lymphocytes # (A) 0.7 k/uL (1.0-4.8); Lymphocytes % (A) 15 %; MCH 33.8 pg (25.0-35.0); MCHC 33.7 g/dL (31.0-37.0); MCV 100.4 fL (80.0-100.0); Macrocytosis Slight; Monocytes # (A) 0.1 k/uL (0-1.0); Monocytes % (A) 1 %; Neutrophils # (A) 3.8 k/uL (1.3-7.7); Neutrophils % (A) 81 %; RBC 2.59 m/uL (3.80-5.40); RDW 17.3 % (11.5-15.5); WBC 4.7 k/uL (3.8-10.6)
[2018-12-10 15:45] LABS: ALT 16 U/L (9-52); AST 36 U/L (14-36); Albumin 2.2 g/dL (3.5-5.0); Alkaline Phosphatase 69 U/L (38-126); Anion Gap 6 mmol/L; Blood Urea Nitrogen 21 mg/dL (7-17); Calcium 7.6 mg/dL (8.4-10.2); Carbon Dioxide 28 mmol/L (22-30); Chloride 101 mmol/L (98-107); Glucose 51 mg/dL (74-99); Magnesium 1.9 mg/dL (1.6-2.3); Potassium 4.4 mmol/L (3.5-5.1); Sodium 135 mmol/L (137-145); Total Bilirubin 0.6 mg/dL (0.2-1.3); Total Protein 4.9 g/dL (6.3-8.2)
[2018-12-10 16:01] LABS: Platelet Count 67 k/uL (150-450)
[2018-12-10] MEDS: DEXTROSE 50% SYRINGE 50 ML IVP STA ×4 (16:17→22:59)
--- NOTE | 2018-12-10 16:48 | XR ---
EXAMINATION TYPE: XR chest 2V DATE OF EXAM: 12/10/2018 COMPARISON: 11/01/2017 HISTORY: 62-year-old female with cough, stage IV lung cancer TECHNIQUE: AP and lateral views FINDINGS: Right anterior chest wall injection port with catheter tip at the mid SVC level. Heart normal size. V maykel large left hilar/suprahilar mass. There is small pleural effusions. Nodularity right upper lobe a nd peripheral right midlung suggesting metastatic disease. Hyperinflation or flattening of the hemidi aphragms. IMPRESSION: COPD with large left suprahilar/hilar mass measuring at least 14.1 cm and nodularity within the right lung suggesting metastatic disease. Small effusions.
--- NOTE | 2018-12-10 16:55 | CT ---
EXAMINATION TYPE: CT brain wo con DATE OF EXAM: 12/10/2018 COMPARISON: None HISTORY: 61-year-old female seizure, ams TECHNIQUE: Examination was done in axial plane without intravenous contrast. Coronal and sagittal r econstructions performed. CT DLP: 1129.4 mGycm Automated exposure control for dose reduction was used. FINDINGS: There is focal hypodensity in the right posterior parieto-occipital region. Background of moderate pa tchy periventricular hypodensities. Some scattered falcine calcifications are noted. Mild generalized cerebral atrophy. No evidence for acute intracranial hemorrhage, mass, mass effect, midline shift, or extra-axial fluid collection. No effacement of the basal subarachnoid cisterns. Mucosal thickening floor of the right maxillary sinus with possible dentigerous cyst within the right maxilla measuring 1.7 cm. Opacification of the right greater than left mastoid air cells. Opacification of the right extends in to the right epitympanum. IMPRESSION: 1. Focal hypodensity right posterior parieto-occipital region could represent an area of subacute or chronic ischemia. Chronic is favored given maintained cortical density. Further clinical correlation recommended. 2. Background of mild atrophy and moderate changes of chronic small vessel ischemic disease. No other acute intracranial abnormality seen. 3. Fluid in the right greater than left mastoid air cells and also extending into the upper right mid dle ear cavity. Correlate for mastoiditis/otomastoiditis.
[2018-12-10] MEDS ORDERED: LORazepam 2 MG/ML INJ IV STA (18:51)
[2018-12-10 18:52] LABS: Glucose,Whole Blood <20 mg/dL (75-99)
[2018-12-10 19:14] LABS: Glucose,Whole Blood 103 mg/dL (75-99)
[2018-12-10] MEDS ORDERED: DEXTROSE 10% IN WATER 1,000 ML with SODIUM CHLORIDE 2.5MEQ/ML VIAL 153.8 MEQ IV SCH (19:45)
[2018-12-10 20:26] LABS: Glucose,Whole Blood 39 mg/dL (75-99)
--- NOTE | 2018-12-10 20:32 | ED ---
Seizure HPI - General Chief Complaint: Seizure Stated Complaint: hypoglycemia Time Seen by Provider: 12/10/18 14:36 Source: patient, EMS, RN notes reviewed Mode of arrival: EMS Limitations: no limitations - History of Present Illness Initial Comments: This is a 62-year-old female with a history of metastatic lung cancer who was brought in by EMS for evaluation for possible seizure. Per her she was noted have about 3 minutes shaking of her upper and lower extremities no tongue biting or urinary incontinence reported. She has no prior history of seizure disorder has been eating and drinking less than usual. No reports of fevers chills nausea vomiting sweats dysuria or other symptoms. MD Complaint: possible seizure - Related Data Home Medications Medication Instructions Recorded Confirmed Budesonide/Formoterol Fumarate 2 puff INHALATION RT-BID 01/07/18 12/10/18 [Symbicort 160-4.5 Mcg Inhaler] Ipratropium-Albuterol Nebulize 3 ml INHALATION RT-BID PRN 01/07/18 12/10/18 [Duoneb 0.5 mg-3 mg/3 ml Soln] Docusate [Colace] 100 mg PO DAILY PRN 12/10/18 12/10/18 Folic Acid 1 mg PO DAILY 12/10/18 12/10/18 Potassium Chloride [Klor-Con 20] 20 meq PO DAILY 12/10/18 12/10/18 fentaNYL 25MCG/HR PATCH [Duragesic 1 patch TRANSDERM Q72H 12/10/18 12/10/18 25MCG/HR] oxyCODONE-APAP 10-325MG [Percocet 1 tab PO Q6HR PRN 12/10/18 12/10/18 10-325 mg] Allergies Allergy/AdvReac Type Severity Reaction Status Date / Time No Known Allergies Allergy Verified 12/10/18 14:52 Review of Systems ROS Statement: Those systems with pertinent positive or pertinent negative responses have been documented in the HPI. ROS Other: All systems not noted in ROS Statement are negative. Past Medical History Past Medical History: Cancer, Respiratory Disorder Additional Past Medical History / Comment(s): masses in lung and adrenal gland, UTI, Stage IV lung CA 12/2017 History of Any Multi-Drug Resistant Organisms: None Reported Past Surgical History: No Surgical Hx Reported Additional Past Surgical History / Comment(s): d and c Past Anesthesia/Blood Transfusion Reactions: No Reported Reaction Past Psychological History: No Psychological Hx Reported Smoking Status: Former smoker General Exam - General Exam Comments Initial Comments: Is a well-developed sec appearing female who does appear older than her stated age. She currently is awake and alert and oriented [place] questioning. Dem onstrates no evidence of tonic-clonic activity at this time Limitations: no limitations General appearance: alert, lethargic Head exam: Present: atraumatic, normocephalic Eye exam: Present: normal appearance, PERRL, EOMI. Absent: scleral icterus, conjunctival injection, periorbital swelling ENT exam: Present: mucous membranes dry Neck exam: Present: normal inspection, full ROM, other (No stridor JVD or bruits). Absent: tenderness, meningismus, lymphadenopathy Respiratory exam: Present: decreased breath sounds Cardiovascular Exam: Present: normal rhythm, tachycardia GI/Abdominal exam: Present: soft, normal bowel sounds. Absent: distended, tenderness, guarding, rebound, rigid Extremities exam: Present: normal inspection, full ROM, normal capillary refill. Absent: tenderness, pedal edema, joint swelling, calf tenderness Back exam: Present: normal inspection Neurological exam: Present: alert, oriented X3, CN II-XII intact Psychiatric exam: Present: normal affect, normal mood Skin exam: Present: warm, dry, intact, normal color. Absent: rash Course Vital Signs 12/10/18 12/10/18 12/10/18 14:42 15:22 15:30 Temperature 98.6 F Pulse Rate 82 118 H 122 H Respiratory 25 H 23 Rate Blood Pressure 112/99 111/88 O2 Sat by Pulse 95 95 Oximetry 12/10/18 12/10/18 12/10/18 15:36 16:30 18:30 Temperature Pulse Rate 118 H 120 H Respiratory 20 Rate Blood Pressure 116/85 109/86 O2 Sat by Pulse 95 Oximetry - Reevaluation(s) Reevaluation #1: 12/10/18 20:33 Patient had several episodes of hypoglycemia that were noted with some episodes of tremors patient was given IV glucose. Medical Decision Making - Medical Decision Making I did discuss findings with the patient and with the patient's after discussion about closed as he related that the patient would like to be supportive care only. I did discuss the case with Dr. Blackburn patient will be admitted for inpatient treatment of hypoglycemia dehydration and failure to thrive - Lab Data Result diagrams: 12/10/18 15:26 12/10/18 15:26 Lab Results 12/10/18 12/10/18 12/10/18 Range/Units 14:40 15:26 15:26 WBC 4.7 (3.8-10.6) k/uL RBC 2.59 L (3.80-5.40) m/uL Hgb 8.8 L (11.4-16.0) gm/dL Hct 26.1 L (34.0-46.0) % MCV 100.4 H (80.0-100.0) fL MCH 33.8 (25.0-35.0) pg MCHC 33.7 (31.0-37.0) g/dL RDW 17.3 H (11.5-15.5) % Plt Count 67 L (150-450) k/uL Neutrophils % 81 % Lymphocytes % 15 % Monocytes % 1 % Eosinophils % 2 % Basophils % 0 % Neutrophils # 3.8 (1.3-7.7) k/uL Lymphocytes # 0.7 L (1.0-4.8) k/uL Monocytes # 0.1 (0-1.0) k/uL Eosinophils # 0.1 (0-0.7) k/uL Basophils # 0.0 (0-0.2) k/uL Manual Slide Review Performed Anisocytosis Slight Macrocytosis Slight Sodium (137-145) mmol/L Potassium (3.5-5.1) mmol/L Chloride (98-107) mmol/L Carbon Dioxide (22-30) mmol/L Anion Gap mmol/L BUN (7-17) mg/dL Creatinine (0.52-1.04) mg/dL Est GFR (CKD-EPI)AfAm (>60 ml/min/1.73 sqM) Est GFR (CKD-EPI)NonAf (>60 ml/min/1.73 sqM) Glucose (74-99) mg/dL POC Glucose (mg/dL) 86 (75-99) mg/dL POC Glu Sales Utility Representative ID October Calcium (8.4-10.2) mg/dL Magnesium (1.6-2.3) mg/dL Total Bilirubin (0.2-1.3) mg/dL AST (14-36) U/L ALT (9-52) U/L Alkaline Phosphatase (38-126) U/L NT-Pro-B Natriuret Pep 3580 pg/mL Total Protein (6.3-8.2) g/dL Albumin (3.5-5.0) g/dL 12/10/18 12/10/18 12/10/18 Range/Units 15:26 18:47 19:10 WBC (3.8-10.6) k/uL RBC (3.80-5.40) m/uL Hgb (11.4-16.0) gm/dL Hct (34.0-46.0) % MCV (80.0-100.0) fL MCH (25.0-35.0) pg MCHC (31.0-37.0) g/dL RDW (11.5-15.5) % Plt Count (150-450) k/uL Neutrophils % % Lymphocytes % % Monocytes % % Eosinophils % % Basophils % % Neutrophils # (1.3-7.7) k/uL Lymphocytes # (1.0-4.8) k/uL Monocytes # (0-1.0) k/uL Eosinophils # (0-0.7) k/uL Basophils # (0-0.2) k/uL Manual Slide Review Anisocytosis Macrocytosis Sodium 135 L (137-145) mmol/L Potassium 4.4 (3.5-5.1) mmol/L Chloride 101 (98-107) mmol/L Carbon Dioxide 28 (22-30) mmol/L Anion Gap 6 mmol/L BUN 21 H (7-17) mg/dL Creatinine 0.64 (0.52-1.04) mg/dL Est GFR (CKD-EPI)AfAm >90 (>60 ml/min/1.73 sqM) Est GFR (CKD-EPI)NonAf >90 (>60 ml/min/1.73 sqM) Glucose 51 L (74-99) mg/dL POC Glucose (mg/dL) <20 L 103 H (75-99) mg/dL POC Glu Sales Utility Representative ID Hussein, Isaac Everett, Isaac Calcium 7.6 L (8.4-10.2) mg/dL Magnesium 1.9 (1.6-2.3) mg/dL Total Bilirubin 0.6 (0.2-1.3) mg/dL AST 36 (14-36) U/L ALT 16 (9-52) U/L Alkaline Phosphatase 69 (38-126) U/L NT-Pro-B Natriuret Pep pg/mL Total Protein 4.9 L (6.3-8.2) g/dL Albumin 2.2 L (3.5-5.0) g/dL 12/10/18 Range/Units 20:17 WBC (3.8-10.6) k/uL RBC (3.80-5.40) m/uL Hgb (11.4-16.0) gm/dL Hct (34.0-46.0) % MCV (80.0-100.0) fL MCH (25.0-35.0) pg MCHC (31.0-37.0) g/dL RDW (11.5-15.5) % Plt Count (150-450) k/uL Neutrophils % % Lymphocytes % % Monocytes % % Eosinophils % % Basophils % % Neutrophils # (1.3-7.7) k/uL Lymphocytes # (1.0-4.8) k/uL Monocytes # (0-1.0) k/uL Eosinophils # (0-0.7) k/uL Basophils # (0-0.2) k/uL Manual Slide Review Anisocytosis Macrocytosis Sodium (137-145) mmol/L Potassium (3.5-5.1) mmol/L Chloride (98-107) mmol/L Carbon Dioxide (22-30) mmol/L Anion Gap mmol/L BUN (7-17) mg/dL Creatinine (0.52-1.04) mg/dL Est GFR (CKD-EPI)AfAm (>60 ml/min/1.73 sqM) Est GFR (CKD-EPI)NonAf (>60 ml/min/1.73 sqM) Glucose (74-99) mg/dL POC Glucose (mg/dL) 39 L (75-99) mg/dL POC Glu Sales Utility Representative ID Isabel Renteria A Calcium (8.4-10.2) mg/dL Magnesium (1.6-2.3) mg/dL Total Bilirubin (0.2-1.3) mg/dL AST (14-36) U/L ALT (9-52) U/L Alkaline Phosphatase (38-126) U/L NT-Pro-B Natriuret Pep pg/mL Total Protein (6.3-8.2) g/dL Albumin (3.5-5.0) g/dL - EKG Data -: EKG Interpreted by Me EKG shows normal: sinus rhythm (Sinus rhythm with marked amount of artifact rate was 131 QRS 50 QT since QTC 294/434 right word axis nonspecific ST configuration) - Radiology Data Radiology results: report reviewed (I did review the imaging and reports CT shows no acute findings x-ray shows left sided mass with evidence of apparent metastatic disease to the right lung.), image reviewed Critical Care Time Critical Care Time: Yes Critical Care Time: 33 minutes of critical care time which includes initial presentation with history physical labs x-rays multiple reevaluation patient responsive therapy multiple discussions with the patient's and patient discussion with Dr. Milagros omer and admission orders and documentation the above Disposition Clinical Impression: New onset seizure, Hypoglycemia, Metastatic primary lung cancer, Failure to thrive in adult, Dehydration, Tachycardia Disposition: ADMITTED IP TO THIS HOSP Condition: Serious Referrals: Blanca Moscoso MD [Primary Care Provider] - 1-2 days
[2018-12-10] MEDS ORDERED: NALOXONE 0.4 MG/ML 1 ML VIAL IV PRN (20:38)
[2018-12-10] MEDS ORDERED: oxyCODONE-APAP 10-325MG 1 EACH TAB PO PRN (20:41)
[2018-12-10] MEDS ORDERED: IPRATROPIUM-ALBUTEROL 3 ML NEB INHALATION PRN (20:41)
[2018-12-10] MEDS ORDERED: DOCUSATE 100 MG CAP PO PRN (20:41)
[2018-12-10 20:48] LABS: Glucose,Whole Blood 143 mg/dL (75-99)
--- NOTE | 2018-12-10 21:27 | ED ---
Medical Decision Making - Lab Data Result diagrams: 12/10/18 15:26 12/10/18 15:26 Lab Results 12/10/18 12/10/18 12/10/18 Range/Units 14:40 15:26 15:26 WBC 4.7 (3.8-10.6) k/uL RBC 2.59 L (3.80-5.40) m/uL Hgb 8.8 L (11.4-16.0) gm/dL Hct 26.1 L (34.0-46.0) % MCV 100.4 H (80.0-100.0) fL MCH 33.8 (25.0-35.0) pg MCHC 33.7 (31.0-37.0) g/dL RDW 17.3 H (11.5-15.5) % Plt Count 67 L (150-450) k/uL Neutrophils % 81 % Lymphocytes % 15 % Monocytes % 1 % Eosinophils % 2 % Basophils % 0 % Neutrophils # 3.8 (1.3-7.7) k/uL Lymphocytes # 0.7 L (1.0-4.8) k/uL Monocytes # 0.1 (0-1.0) k/uL Eosinophils # 0.1 (0-0.7) k/uL Basophils # 0.0 (0-0.2) k/uL Manual Slide Review Performed Anisocytosis Slight Macrocytosis Slight Sodium (137-145) mmol/L Potassium (3.5-5.1) mmol/L Chloride (98-107) mmol/L Carbon Dioxide (22-30) mmol/L Anion Gap mmol/L BUN (7-17) mg/dL Creatinine (0.52-1.04) mg/dL Est GFR (CKD-EPI)AfAm (>60 ml/min/1.73 sqM) Est GFR (CKD-EPI)NonAf (>60 ml/min/1.73 sqM) Glucose (74-99) mg/dL POC Glucose (mg/dL) 86 (75-99) mg/dL POC Glu French Translator [facility] Cal[facility] (8.4-10.2) mg/dL Magnesium (1.6-2.3) mg/dL Total Bilirubin (0.2-1.3) mg/dL AST (14-36) U/L ALT (9-52) U/L Alkaline Phosphatase (38-126) U/L NT-Pro-B Natriuret Pep 3580 pg/mL Total Protein (6.3-8.2) g/dL Albumin (3.5-5.0) g/dL 12/10/18 12/10/18 12/10/18 Range/Units 15:26 18:47 19:10 WBC (3.8-10.6) k/uL RBC (3.80-5.40) m/uL Hgb (11.4-16.0) gm/dL Hct (34.0-46.0) % MCV (80.0-100.0) fL MCH (25.0-35.0) pg MCHC (31.0-37.0) g/dL RDW (11.5-15.5) % Plt Count (150-450) k/uL Neutrophils % % Lymphocytes % % Monocytes % % Eosinophils % % Basophils % % Neutrophils # (1.3-7.7) k/uL Lymphocytes # (1.0-4.8) k/uL Monocytes # (0-1.0) k/uL Eosinophils # (0-0.7) k/uL Basophils # (0-0.2) k/uL Manual Slide Review Anisocytosis Macrocytosis Sodium 135 L (137-145) mmol/L Potassium 4.4 (3.5-5.1) mmol/L Chloride 101 (98-107) mmol/L Carbon Dioxide 28 (22-30) mmol/L Anion Gap 6 mmol/L BUN 21 H (7-17) mg/dL Creatinine 0.64 (0.52-1.04) mg/dL Est GFR (CKD-EPI)AfAm >90 (>60 ml/min/1.73 sqM) Est GFR (CKD-EPI)NonAf >90 (>60 ml/min/1.73 sqM) Glucose 51 L (74-99) mg/dL POC Glucose (mg/dL) <20 L 103 H (75-99) mg/dL POC Glu French Translator ID [place], Isaac Hussein, Isaac Calcium 7.6 L (8.4-10.2) mg/dL Magnesium 1.9 (1.6-2.3) mg/dL Total Bilirubin 0.6 (0.2-1.3) mg/dL AST 36 (14-36) U/L ALT 16 (9-52) U/L Alkaline Phosphatase 69 (38-126) U/L NT-Pro-B Natriuret Pep pg/mL Total Protein 4.9 L (6.3-8.2) g/dL Albumin 2.2 L (3.5-5.0) g/dL 12/10/18 Range/Units 20:17 WBC (3.8-10.6) k/uL RBC (3.80-5.40) m/uL Hgb (11.4-16.0) gm/dL Hct (34.0-46.0) % MCV (80.0-100.0) fL MCH (25.0-35.0) pg MCHC (31.0-37.0) g/dL RDW (11.5-15.5) % Plt Count (150-450) k/uL Neutrophils % % Lymphocytes % % Monocytes % % Eosinophils % % Basophils % % Neutrophils # (1.3-7.7) k/uL Lymphocytes # (1.0-4.8) k/uL Monocytes # (0-1.0) k/uL Eosinophils # (0-0.7) k/uL Basophils # (0-0.2) k/uL Manual Slide Review Anisocytosis Macrocytosis Sodium (137-145) mmol/L Potassium (3.5-5.1) mmol/L Chloride (98-107) mmol/L Carbon Dioxide (22-30) mmol/L Anion Gap mmol/L BUN (7-17) mg/dL Creatinine (0.52-1.04) mg/dL Est GFR (CKD-EPI)AfAm (>60 ml/min/1.73 sqM) Est GFR (CKD-EPI)NonAf (>60 ml/min/1.73 sqM) Glucose (74-99) mg/dL POC Glucose (mg/dL) 39 L (75-99) mg/dL POC Glu French Translator Isabel Tracy A Calcium (8.4-10.2) mg/dL Magnesium (1.6-2.3) mg/dL Total Bilirubin (0.2-1.3) mg/dL AST (14-36) U/L ALT (9-52) U/L Alkaline Phosphatase (38-126) U/L NT-Pro-B Natriuret Pep pg/mL Total Protein (6.3-8.2) g/dL Albumin (3.5-5.0) g/dL Disposition Clinical Impression: New onset seizure, Hypoglycemia, Metastatic primary lung cancer, Failure to thrive in adult, Dehydration, Tachycardia, Hypotensive episode Disposition: ADMITTED IP TO THIS HOSP Condition: Serious
[2018-12-10 22:03] LABS: Glucose,Whole Blood 80 mg/dL (75-99)
[2018-12-10 22:43] LABS: ABG HCO3 24 mmol/L (21-25); ABG Oxygen Saturation 98.8 % (94-97); ABG PCO2 44 mmHg (35-45); ABG PH 7.34 (7.35-7.45); ABG PO2 122 mmHg (83-108); ABG TCO2 25 mmol/L (19-24)
[2018-12-10 22:58] LABS: Glucose,Whole Blood 65 mg/dL (75-99)
[2018-12-10] MEDS ORDERED: SODIUM CHLORIDE 0.9% 1,000 ML IV ONE (23:59)
[2018-12-11] MEDS ORDERED: HEPARIN SODIUM,PORCINE 5,000 UNIT/ML 1 ML VIAL SQ SCH
[2018-12-11 00:02] LABS: Glucose,Whole Blood 138 mg/dL (75-99)
[2018-12-11 00:15] LABS: Glucose,Whole Blood 133 mg/dL (75-99)
--- NOTE | 2018-12-11 00:47 | P.HPIM ---
History of Present Illness H&P Date: 12/10/18 Chief Complaint: Seizure 62-year-old female with past medical history of metastatic lung cancer. Patient presented to the hospital due to new onset seizure attack. She was at her baseline health status family denies any past medical history except for the history of cancer. She walks independently most of the time with some minimal assistance from family members. She is sharp in the mind expresses her needs. However recently upon talking to her doctors they found out that the chemotherapy is not achieving any improvements and has put a hold on that in order to discuss other avenues in her management. Family was thinking of entertaining thoughts of palliative/hospice care but that has not been decided yet she recently received a hospital bed at home but otherwise patient doesn't have any advanced directives or wishing will. Since patient was sleeping in her bed with the door open her and a neighbor who is a nurse has been talking when noticed abnormal sounds in voices from the room the thought that she was coughing but the neighbor who morley ppen to BE a nurse thought she was going through a seizure she never had any seizures before however a recent MRI less than 3 weeks ago showed brain metastases with vasogenic edema without any midline shift or mass effect. Upon which patient was transferred to the hospital via ambulance also found her to have low blood sugar. Patient doesn't take any medications at home except for pain medications and medications for constipation. However she has not been eating well recently. Upon arrival to the hospital her blood sugar was very low she was given multiple doses of D50 in order to keep her blood sugar normal eventually she was started on D10 after having another seizure episode where she was found to have a blood sugar of 20. Upon my evaluation 2 hours after the last she seizure episode, patient was not fully awake and I discussed with the family the need to transfer the patient to a facility with a half neurology service for further evaluation. I reviewed the CAT scan from this admission and the neurologist reported changes in the same areas of the posterior parietal lobes without any mass effect or midline shift which is reassuring at this point. Her blood sugar was Somewhat above 60 to the 80s and 90s range despite that she was not waking up we checked CO2 level on an ABG and was unremarkable that's when the remembered that he replaced a fentanyl patch today that she hasn't been using for over 2 weeks now due to constipation issues. I asked the nurse to administer a dose of Narcan upon which patient became more awake started to localize pain in her belly (chronic per ) and turns her head to voices, lifting her head and moving both hands spontaneously and blinking with eyes. still overall seemed to be lethargic and tired. Patient stated that he was satisfied with this response, and would rather stay close to home understanding we dont have neurology service in house over the weekend , and agreeing to transfer in the morning if she is not showing more neurological improvement by then. Review of Systems Unable to obtain meaningful review of systems due to patient mental status ROS unobtainable: due to mental status Past Medical History Past Medical History: Cancer, Respiratory Disorder Additional Past Medical History / Comment(s): masses in lung and adrenal gland, UTI, Stage IV lung CA 12/2017 History of Any Multi-Drug Resistant Organisms: None Reported Past Surgical History: No Surgical Hx Reported Additional Past Surgical History / Comment(s): d and c Past Anesthesia/Blood Transfusion Reactions: No Reported Reaction Past Psychological History: No Psychological Hx Reported Smoking Status: Former smoker - Past Family History family Family Medical History: No Reported History Medications and Allergies Home Medications Medication Instructions Recorded Confirmed Type Budesonide/Formoterol Fumarate 2 puff INHALATION RT-BID 01/07/18 12/10/18 History [Symbicort 160-4.5 Mcg Inhaler] Ipratropium-Albuterol Nebulize 3 ml INHALATION RT-BID PRN 01/07/18 12/10/18 History [Duoneb 0.5 mg-3 mg/3 ml Soln] Docusate [Colace] 100 mg PO DAILY PRN 12/10/18 12/10/18 History Folic Acid 1 mg PO DAILY 12/10/18 12/10/18 History Potassium Chloride [Klor-Con 20] 20 meq PO DAILY 12/10/18 12/10/18 History fentaNYL 25MCG/HR PATCH [Duragesic 1 patch TRANSDERM Q72H 12/10/18 12/10/18 History 25MCG/HR] oxyCODONE-APAP 10-325MG [Percocet 1 tab PO Q6HR PRN 12/10/18 12/10/18 History 10-325 mg] Allergies Allergy/AdvReac Type Severity Reaction Status Date / Time No Known Allergies Allergy Verified 12/10/18 14:52 Physical Exam Vitals: Vital Signs Temp Pulse Resp BP Pulse Ox 12/10/18 18:30 120 H 20 109/86 95 12/10/18 16:30 116/85 12/10/18 15:36 118 H 12/10/18 15:30 122 H 23 111/88 95 12/10/18 15:22 118 H 12/10/18 14:42 98.6 F 82 25 H 112/99 95 Intake and Output 12/10/18 12/10/18 12/10/18 06:59 14:59 22:59 Other: Weight 42.184 kg Constitutional: patient is moaning and grimacing to pain stimulation , became more responsive after a dose of narcan and removal of fentanyl patch, cachectic Eyes: Anicteric sclerae, moist conjunctiva Pupils equal round reactive to light bilaterally ENMT: NC/AT Oropharynx clear, no erythema, no exudates Neck: Supple, FROM, no masses, or JVD No carotid bruits No thyromegaly Lungs: bronchial breathing left lung, no wheezing or crackles Clear to percussion Normal respiratory effort, no accessory muscle use Cardiovascular: Heart tachycardiac No murmurs, gallops, or rubs bilateral leg edema +1 Abdominal: Soft, not distended Nontender, no guarding, rebound or rigidity Abdomen moving with respiration Normoactive bowel sounds No hepatomegaly, No splenomegaly No palpable mass No abdominal wall hernia noted Skin: Normal temperature, tone, texture, turgor No induration No subcutaneous nodules No rash, lesions No ulcers Extremities: No digital cyanosis bilateral finger clubbing Pedal pulses intact and symmetrical Radial pulses intact and symmetrical No calf tenderness Psychiatric: patient became more responsive after a dose of narcan Neuro pupils equal round and reactive to light initially only grimacing to pain stimulation , however after a dose of narcan patient lifting her head spontaneously moaning in pain and localizing pain (with both her hands) in her abd (chronic per the ) she was blinking but not opening eyes, not talking Lymphatics: no palpable cervical or supraclavicular , or inguinal lymph nodes Results CBC & Chem 7: 12/10/18 15:26 12/10/18 15:26 Labs: Abnormal Lab Results - Last 24 Hours (Table) 12/10/18 12/10/18 12/10/18 Range/Units 15:26 15:26 18:47 RBC 2.59 L (3.80-5.40) m/uL Hgb 8.8 L (11.4-16.0) gm/dL Hct 26.1 L (34.0-46.0) % MCV 100.4 H (80.0-100.0) fL RDW 17.3 H (11.5-15.5) % Plt Count 67 L (150-450) k/uL Lymphocytes # 0.7 L (1.0-4.8) k/uL Sodium 135 L (137-145) mmol/L BUN 21 H (7-17) mg/dL Glucose 51 L (74-99) mg/dL POC Glucose (mg/dL) <20 L (75-99) mg/dL Calcium 7.6 L (8.4-10.2) mg/dL Total Protein 4.9 L (6.3-8.2) g/dL Albumin 2.2 L (3.5-5.0) g/dL 12/10/18 12/10/18 12/10/18 Range/Units 19:10 20:17 20:43 RBC (3.80-5.40) m/uL Hgb (11.4-16.0) gm/dL Hct (34.0-46.0) % MCV (80.0-100.0) fL RDW (11.5-15.5) % Plt Count (150-450) k/uL Lymphocytes # (1.0-4.8) k/uL Sodium (137-145) mmol/L BUN (7-17) mg/dL Glucose (74-99) mg/dL POC Glucose (mg/dL) 103 H 39 L 143 H (75-99) mg/dL Calcium (8.4-10.2) mg/dL Total Protein (6.3-8.2) g/dL Albumin (3.5-5.0) g/dL Assessment and Plan Assessment: 62-year-old female with history of metastatic lung cancer, admitted as an inpatient with anticipated length of stay more than 48 hours due to acute metabolic encephalopathy secondary to symptomatic hypoglycemia with seizures. Patient doesn't have any other medical problems per the . She has been having poor by mouth intake recently. At baseline she is independent in her activities of daily living requiring only minimal assistance per the and family. She ambulates with no assistive devices but the would hold her hands for safety. Patient had a seizure at home today at 1:30 PM and was found to be hypoglycemic brought to the hospital by ambulance and then had another seizure attack at 7 PM when she was persistently hypoglycemic at that time her sugar was less than 20. She did not regain full consciousness upon my evaluation at 9 PM when I was evaluating the patient and suggested that she would need transfer to a facility with neurology service as we don't have neurology over the weekend. Upon further revision this seems like an MRI of the brain done less than 3 weeks ago suggested right posterior parietal metastases with vasogenic edema. However computed tomography scan of the head done today showed same lesions but no mass effect or midline shift. Patient ABGs checked and CO2 level was normal. Eventually reported that he applied a fentanyl patch no one today that she hasn't used for the past 2 weeks to control pain. Upon reversing the effect of fentanyl with a dose of Narcan patient became more responsive. Patient expressed that his seems to be more responsive to him at that point and he preferred to defer any transfer in order to stay close home understanding that we do not have neurology service in house over the weekend but he agreed that we would proceed with transferring the patient if she doesn't show more neurologic improvement in the morning especially if despite her blood sugars being controlled. Despite management in the ED with D10 and frequent administration of D50 patient continues to have dips of hypoglycemia which at this point is thought to be the main reason for her metabolic encephalopathy and 2 attacks of seizures. Plan is to continue to monitor blood glucose closely and continue D10. Patient will also be regularly assess neurologically. at this point on the step down unit, patient is responding to name , and answers No when she asked about pain , she seems to be more responsive overall. Plan: Acute metabolic encephalopathy secondary to hypoglycemia New-onset seizure secondary to symptomatic hypoglycemia hypoglycemia , poor PO intake seizure and fall precautions CT images and report reviewed by me, no midline shift , no mass effect around the right posterior parietal lesions continue with D10 check blood sugar q2hr, Goal to keep blood sugar above 70 chronic condition metastatic lung cancer debility cachexia Severe protein calorie malnutrition DVT PPX heparin sc tid PT/OT follow up morning labs Surrogate decision-maker: Patient CODE STATUS: Full code Discussed with: Patient, ER, RN Anticipated discharge: 48-[address]: Pending clinical course possible subacute rehab A total of 95 minutes was spent on the care of this complex patient more than 50% of the time was spent in counseling and care coordination.
[2018-12-11 01:09] LABS: Glucose,Whole Blood 99 mg/dL (75-99)
--- NOTE | 2018-12-11 01:17 | P.HPADDEND ---
H&P Addendum H&P Addendum Date: 12/11/18 Advanced Care Planning Active diagnoses: Acute metabolic encephalopathy secondary to hypoglycemia Symptomatic hypoglycemia with seizures Metastatic lung cancer Background: The patient was admitted for treatment of seizure secondary to hypoglycemia Discussion: Person(s) present and participating in discussion: The patient, myself, and patient and HER 2 sons Summary: Patient has not expressed her wishes in the past regarding lifesaving measures and CPR, she does not have advanced directives or wishing will. Patient is her decision maker on behalf of his at this point he knows that there is widespread wishes has been to pursue treatment for her underlying cancer. She has not given up yet. They understand that a cure would require medical but she was still hoping for some improvement and some control of her symptoms and a cancer growth. family elected that the patient should be a full code at this time and pursue aggressive medical therapy. Patient is unable to express her wishes at this time due to metabolic encephalopathy secondary to hypoglycemia seizures Time spent: Total time spent face to face in education and discussion directly related to advanced care plannin minutes
[2018-12-11 02:40] VITALS: BMI 16.9
[2018-12-11 03:05] LABS: Glucose,Whole Blood 78 mg/dL (75-99)
[2018-12-11] MEDS ORDERED: SODIUM CHLORIDE 0.9% 500 ML 500 ML IV ONE (03:34)
--- NOTE | 2018-12-11 04:04 | P.PN ---
Subjective Progress Note Date: 12/11/18 Principal diagnosis: Seizure secondary to hypoglycemia Objective - Vital Signs Vital signs: Vital Signs Temp 98 F 12/11/18 03:05 Pulse 121 H 12/11/18 03:30 Resp 18 12/11/18 03:05 BP 80/52 12/11/18 03:30 Pulse Ox 96 12/11/18 03:05 Intake & Output 12/10/18 12/10/18 12/11/18 06:59 18:59 06:59 Weight 42.184 kg Other: Voiding Method Bedpan - Exam Constitutional: Patient is hypotensive and tachycardic, does not seem to be in any distress, patient responds to name and opens eyes briefly turns her head to the voices Eyes: Pupils equal round reactive to light and accomodation Lungs: Good breath sounds bilaterally bronchial breathing left lung base clear to percussion, normal respiratory effort no use of accessory muscles Cardiovascular: Tachycardia normal S1 and S2 , +2 peripheral edema Gastrointestinal: Soft, no tenderness to palpation, bowel sounds positive, no abdominal wall hernias Extremities: No digital cyanosis , positive bilateral finger clubbing peripheral pulses palpable and equal over bilateral radial arteries and dorsalis pedis artery, no calf muscle tenderness - Labs CBC & Chem 7: 12/10/18 15:26 12/10/18 15:26 Labs: Abnormal Lab Results - Last 24 Hours (Table) 12/10/18 12/10/18 12/10/18 Range/Units 15:26 15:26 18:47 RBC 2.59 L (3.80-5.40) m/uL Hgb 8.8 L (11.4-16.0) gm/dL Hct 26.1 L (34.0-46.0) % MCV 100.4 H (80.0-100.0) fL RDW 17.3 H (11.5-15.5) % Plt Count 67 L (150-450) k/uL Lymphocytes # 0.7 L (1.0-4.8) k/uL ABG pH (7.35-7.45) ABG pO2 (83-108) mmHg ABG Total CO2 (19-24) mmol/L ABG O2 Saturation (94-97) % Sodium 135 L (137-145) mmol/L BUN 21 H (7-17) mg/dL Glucose 51 L (74-99) mg/dL POC Glucose (mg/dL) <20 L (75-99) mg/dL Calcium 7.6 L (8.4-10.2) mg/dL Total Protein 4.9 L (6.3-8.2) g/dL Albumin 2.2 L (3.5-5.0) g/dL 12/10/18 12/10/18 12/10/18 Range/Units 19:10 20:17 20:43 RBC (3.80-5.40) m/uL Hgb (11.4-16.0) gm/dL Hct (34.0-46.0) % MCV (80.0-100.0) fL RDW (11.5-15.5) % Plt Count (150-450) k/uL Lymphocytes # (1.0-4.8) k/uL ABG pH (7.35-7.45) ABG pO2 (83-108) mmHg ABG Total CO2 (19-24) mmol/L ABG O2 Saturation (94-97) % Sodium (137-145) mmol/L BUN (7-17) mg/dL Glucose (74-99) mg/dL POC Glucose (mg/dL) 103 H 39 L 143 H (75-99) mg/dL Calcium (8.4-10.2) mg/dL Total Protein (6.3-8.2) g/dL Albumin (3.5-5.0) g/dL 12/10/18 12/10/18 12/10/18 Range/Units 22:39 22:53 23:42 RBC (3.80-5.40) m/uL Hgb (11.4-16.0) gm/dL Hct (34.0-46.0) % MCV (80.0-100.0) fL RDW (11.5-15.5) % Plt Count (150-450) k/uL Lymphocytes # (1.0-4.8) k/uL ABG pH 7.34 L (7.35-7.45) ABG pO2 122 H (83-108) mmHg ABG Total CO2 25 H (19-24) mmol/L ABG O2 Saturation 98.8 H (94-97) % Sodium (137-145) mmol/L BUN (7-17) mg/dL Glucose (74-99) mg/dL POC Glucose (mg/dL) 65 L 138 H (75-99) mg/dL Calcium (8.4-10.2) mg/dL Total Protein (6.3-8.2) g/dL Albumin (3.5-5.0) g/dL 12/10/18 Range/Units 23:54 RBC (3.80-5.40) m/uL Hgb (11.4-16.0) gm/dL Hct (34.0-46.0) % MCV (80.0-100.0) fL RDW (11.5-15.5) % Plt Count (150-450) k/uL Lymphocytes # (1.0-4.8) k/uL ABG pH (7.35-7.45) ABG pO2 (83-108) mmHg ABG Total CO2 (19-24) mmol/L ABG O2 Saturation (94-97) % Sodium (137-145) mmol/L BUN (7-17) mg/dL Glucose (74-99) mg/dL POC Glucose (mg/dL) 133 H (75-99) mg/dL Calcium (8.4-10.2) mg/dL Total Protein (6.3-8.2) g/dL Albumin (3.5-5.0) g/dL Assessment and Plan Assessment: 62-year-old female with history of metastatic lung cancer, admitted as an inpatient with anticipated length of stay more than 48 hours due to acute metabolic encephalopathy secondary to symptomatic hypoglycemia with seizures. Patient doesn't have any other medical problems per the . She has been having poor by mouth intake recently. At baseline she is independent in her activities of daily living requiring only minimal assistance per the and family. She ambulates with no assistive devices but the would hold her hands for safety. Patient had a seizure at home today at 1:30 PM and was found to be hypoglycemic brought to the hospital by ambulance and then had another seizure attack at 7 PM when she was persistently hypoglycemic at that time her sugar was less than 20. She did not regain full consciousness upon my evaluation at 9 PM when I was evaluating the patient and suggested that she would need transfer to a facility with neurology service as we don't have neurology over the weekend. Upon further revision this seems like an MRI of the brain done less than 3 weeks ago suggested right posterior parietal metastases with vasogenic edema. However computed tomography scan of the head done today showed same lesions but no mass effect or midline shift. Patient ABGs checked and CO2 level was normal. Eventually reported that he applied a fentanyl patch no one today that she hasn't used for the past 2 weeks to control pain. Upon reversing the effect of fentanyl with a dose of Narcan patient became more responsive. Patient expressed that his seems to be more responsive to him at that point and he preferred to defer any transfer in order to stay close home understanding that we do not have neurology service in house over the weekend but he agreed that we would proceed with transferring the patient if she doesn't show more neurologic improvement in the morning especially if despite her blood sugars being controlled. Despite management in the ED with D10 and frequent administration of D50 patient continues to have dips of hypoglycemia which at this point is thought to be the main reason for her metabolic encephalopathy and 2 attacks of seizures. Plan is to continue to monitor blood glucose closely and continue D10. Patient will also be regularly assess neurologically. at this point on the step down unit, patient is responding to name , and answers No when she asked about pain , she seems to be more responsive overall. Plan: Called to evaluate the patient for hypotension despite receiving 2.5 L so far Patient is developing edema over bilateral lower extremities and left upper extremity. Patient is a small lady only 40 kg or 2 received 2.5 L she was receiving another half liter to support her Vascular system him at this point worried of fluid overload and I think patient will require to it on IV pressors to support her cardiovascular system Had discussion with the was agreeable to start levo fed, and also had a discussion with the patient about CODE STATUS and he agreed on DO NOT RESUSCITATE status at this time. Update the plan will be transferred patient to the [facility] accepted the patient Obtain blood cultures Start levo fed at 0.5 mcg/kg/m Close monitoring of blood sugar and vital signs 40 minutes were spent in critical care time more than 50% in counseling and coordinating care
[2018-12-11] MEDS ORDERED: DEXTROSE 50% SYRINGE 50 ML IVP ONE ×2 (04:05→08:25)
[2018-12-11 04:08] LABS: Glucose,Whole Blood 69 mg/dL (75-99)
[2018-12-11] MEDS ORDERED: SODIUM CHLORIDE 0.9% 1,000 ML IV ONE (04:13)
[2018-12-11] MEDS ORDERED: NOREPINEPHRINE 4 MG in SODIUM CHLORIDE 0.9% 250 ML IV SCH (04:15)
[2018-12-11 04:36] LABS: Glucose,Whole Blood 140 mg/dL (75-99)
[2018-12-11 05:08] LABS: Appearance,Urine Clear (Clear); Bilirubin,Urine Negative (Negative); Blood,Urine Negative (Negative); Color,Urine Yellow; Glucose,Urine (UA) Trace (Negative); Hyaline Casts,Urine 5 /lpf (0-2); Ketones,Urine Negative (Negative); Leukocyte Esterase,Urine Negative (Negative); Mucus,Urine Occasional /hpf; Nitrite,Urine Negative (Negative); Protein,Urine 1+ (Negative); RBC,Urine 1 /hpf (0-5); Specific Gravity,Urine 1.016 (1.001-1.035); Squamous Epithelial Cell,Urine <1 /hpf (0-4); WBC,Urine 18 /hpf (0-5)
[2018-12-11 05:17] LABS: Anisocytosis Slight; Hypochromasia Moderate; MCH 31.4 pg (25.0-35.0); MCHC 30.2 g/dL (31.0-37.0); Macrocytosis Moderate; Mean Platelet Volume 8.3; RBC 1.84 m/uL (3.80-5.40); RDW 17.1 % (11.5-15.5); WBC 10.9 k/uL (3.8-10.6)
[2018-12-11 05:18] LABS: Glucose,Whole Blood 156 mg/dL (75-99)
[2018-12-11 05:20] LABS: Platelet Count 60 k/uL (150-450)
[2018-12-11 05:24] LABS: ALT 19 U/L (9-52); AST 34 U/L (14-36); Albumin 1.4 g/dL (3.5-5.0); Alkaline Phosphatase 39 U/L (38-126); Anion Gap 4 mmol/L; Blood Urea Nitrogen 19 mg/dL (7-17); Carbon Dioxide 21 mmol/L (22-30); Chloride 109 mmol/L (98-107); Glucose 142 mg/dL (74-99); Potassium 3.3 mmol/L (3.5-5.1); Sodium 134 mmol/L (137-145); Total Bilirubin 0.2 mg/dL (0.2-1.3); Total Protein 3.3 g/dL (6.3-8.2)
[2018-12-11 05:32] LABS: HCT 19.1 % (34.0-46.0); HGB 5.8 gm/dL (11.4-16.0)
[2018-12-11 05:42] LABS: Calcium 6.2 mg/dL (8.4-10.2)
[2018-12-11 05:50] LABS: Band Neutrophils % 11 %; Large Platelets Present; Lymphocytes # (M) 0.65 k/uL (1.0-4.8); Monocytes # (M) 0.22 k/uL (0-1.0); Neutrophils % (M) 81 %; Nucleated Red Blood Cells 0 /100 WBC (0-0); Total Cells Counted 200
[2018-12-11 06:37] LABS: Glucose,Whole Blood 78 mg/dL (75-99)
[2018-12-11] MEDS ORDERED: Potassium Replacement Protocol 1 EACH MISC MISCELLANE PRN (06:38)
[2018-12-11 06:41] LABS: Ionized Calcium 4.4 mg/dL (4.5-5.3)
[2018-12-11 06:47] LABS: Magnesium 1.6 mg/dL (1.6-2.3)
[2018-12-11] MEDS: POTASSIUM CHLORIDE 10 MEQ in WATER FOR INJECTION 1 100ML.BAG IVPB SCH ×3 (06:52→10:38)
--- NOTE | 2018-12-11 06:53 | XR ---
EXAMINATION TYPE: XR chest 1V portable DATE OF EXAM: 12/11/2018 HISTORY: SOB. REFERENCE: Previous study dated 12/10/2018. FINDINGS: Lungs are overinflated. There is a large suprahilar mass on the left measuring over 15 cm. There is a MediPort in place on the right via a right internal jugular approach. Its tip is in the sepulveda perior vena cava. Heart size upper limits of normal. There is left basilar airspace disease. There is developing right-sided airspace disease. There is a small left effusion. IMPRESSION: 1. COPD. 2. LEFT SUPRAHILAR MASS. 3. LEFT BASILAR AIRSPACE DISEASE. 4. LEFT-SIDED EFFUSION. 5. DEVELOPING RIGHT BASILAR AIRSPACE DISEASE.
[2018-12-11] MEDS ORDERED: Magnesium Replacement Protocol 1 EACH MISC MISCELLANE PRN (07:25)
[2018-12-11 07:26] LABS: Glucose,Whole Blood 87 mg/dL (75-99)
[2018-12-11] MEDS: MAGNESIUM SULFATE-D5W PMX 1 GM in DEXTROSE/WATER 1 100ML.BAG IVPB SCH ×2 (07:33→10:38)
[2018-12-11] MEDS ORDERED: SYMBICORT 160-4.5 MCG INHALER INHALATION SCH (08:00)
[2018-12-11 08:07] LABS: Glucose,Whole Blood 71 mg/dL (75-99)
[2018-12-11] MEDS ORDERED: DEXTROSE 50% SYRINGE 50 ML IVP STA (08:27)
[2018-12-11] MEDS ORDERED: POTASSIUM CHLORIDE ER 20 MEQ TAB.ER PO SCH (09:00)
[2018-12-11] MEDS ORDERED: FOLIC ACID 1 MG TAB PO SCH (09:00)
[2018-12-11] MEDS ORDERED: LORazepam 2 MG/ML INJ IV PRN (09:08)
[2018-12-11] MEDS ORDERED: ATROPINE OPHTH SOLN 1% 5ML BTL SUBLINGUAL PRN (09:11)
[2018-12-11] MEDS ORDERED: HYDROCORTISONE SUCCINATE 100 MG/2 ML VIAL IV STA (09:15)
[2018-12-11] MEDS: MORPHINE SULFATE 2 MG/ML SYRINGE IVP PRN ×2 (09:21→11:46)
[2018-12-11 12:33] VITALS: BP 88/65; PULSE 108; RESP 15; TEMP 97.9
--- NOTE | 2018-12-11 13:09 | P.CONS ---
History of Present Illness - Reason for Consult Consult date: 12/11/18 - History of Present Illness The patient is known to our practice, for a history of metastatic adenocarcinoma of the lung, which progressed through multiple therapies and has had progressive decline in performance status. She came in with mental status changes and severe hypoglycemia, as well as SIRS. She was admitted to the ICU and placed on pressors. Past Medical History Past Medical History: Cancer, Respiratory Disorder Additional Past Medical History / Comment(s): masses in lung and adrenal gland, UTI, Stage IV lung CA 12/2017 History of Any Multi-Drug Resistant Organisms: None Reported Past Surgical History: No Surgical Hx Reported Additional Past Surgical History / Comment(s): d and c Past Anesthesia/Blood Transfusion Reactions: No Reported Reaction Past Psychological History: No Psychological Hx Reported Smoking Status: Former smoker - Past Family History family Family Medical History: No Reported History Medications and Allergies Home Medications Medication Instructions Recorded Confirmed Type Budesonide/Formoterol Fumarate 2 puff INHALATION RT-BID 01/07/18 12/10/18 History [Symbicort 160-4.5 Mcg Inhaler] Ipratropium-Albuterol Nebulize 3 ml INHALATION RT-BID PRN 01/07/18 12/10/18 History [Duoneb 0.5 mg-3 mg/3 ml Soln] Docusate [Colace] 100 mg PO DAILY PRN 12/10/18 12/10/18 History Folic Acid 1 mg PO DAILY 12/10/18 12/10/18 History Potassium Chloride [Klor-Con 20] 20 meq PO DAILY 12/10/18 12/10/18 History fentaNYL 25MCG/HR PATCH [Duragesic 1 patch TRANSDERM Q72H 12/10/18 12/10/18 History 25MCG/HR] oxyCODONE-APAP 10-325MG [Percocet 1 tab PO Q6HR PRN 12/10/18 12/10/18 History 10-325 mg] Allergies Allergy/AdvReac Type Severity Reaction Status Date / Time No Known Allergies Allergy Verified 12/10/18 14:52 Physical Exam Vitals: Vital Signs Temp Pulse Pulse Resp BP BP BP 12/11/18 12:00 97.9 F 108 H 15 88/65 12/11/18 11:00 111 H 21 100/69 12/11/18 10:00 113 H 28 H 79/41 12/11/18 09:00 113 H 25 H 96/53 12/11/18 08:57 98.1 F 118 H 14 87/58 12/11/18 08:27 98.1 F 113 H 17 94/57 12/11/18 08:17 97.9 F 116 H 14 96/63 12/11/18 08:00 97.8 F 117 H 26 H 100/60 12/11/18 07:00 110 H 20 92/49 12/11/18 06:00 120 H 29 H 88/58 12/11/18 05:00 91/61 12/11/18 03:30 121 H 80/52 12/11/18 03:05 98 F 122 H 18 73/47 12/11/18 01:36 118 H 12/11/18 01:29 120 H 12/11/18 01:02 126 H 82/49 12/11/18 00:43 123 H 84/49 12/11/18 00:14 129 H 66/44 12/11/18 00:13 97.9 F 68/44 12/11/18 00:10 98.5 F 75/52 12/11/18 00:00 133 H 18 77/51 83/52 12/10/18 23:50 127 H 22 178/90 12/10/18 23:15 120 H 22 138/99 12/10/18 21:00 122 H 22 100/81 12/10/18 20:00 122 H 23 123/105 12/10/18 19:00 126 H 30 H 99/83 12/10/18 18:54 125 H 26 H 99/83 12/10/18 18:30 120 H 20 109/86 12/10/18 16:30 116/85 12/10/18 15:36 118 H 12/10/18 15:30 122 H 23 111/88 12/10/18 15:22 118 H 12/10/18 14:42 98.6 F 82 25 H 112/99 Pulse Ox 12/11/18 12:00 90 L 12/11/18 11:00 12/11/18 10:00 12/11/18 09:00 91 L 12/11/18 08:57 91 L 12/11/18 08:27 96 12/11/18 08:17 91 L 12/11/18 08:00 90 L 12/11/18 07:00 72 L 12/11/18 06:00 97 12/11/18 05:00 99 12/11/18 03:30 12/11/18 03:05 96 12/11/18 01:36 12/11/18 01:29 12/11/18 01:02 12/11/18 00:43 12/11/18 00:14 80 L 12/11/18 00:13 12/11/18 00:10 12/11/18 00:00 12/10/18 23:50 98 12/10/18 23:15 99 12/10/18 21:00 100 12/10/18 20:00 58 L 12/10/18 19:00 29 L 12/10/18 18:54 60 L 12/10/18 18:30 95 12/10/18 16:30 12/10/18 15:36 12/10/18 15:30 95 12/10/18 15:22 12/10/18 14:42 95 Intake and Output 12/10/18 12/11/18 12/11/18 22:59 06:59 14:59 Intake Total 103.696 748.412 Output Total 225 85 Balance -121.304 663.412 Intake: IV 100 400 Dextrose 10% in Water 1, 100 300 000 ml @ 100 mls/hr IV . [id number] EVY with Sodium Chloride 2.5MEQ/ml Vial 153.8 meq Rx#:[id number] Potassium Chloride 10 meq 100 In Water For Injection 1 100ml.bag @ 100 mls/hr IVPB Q1H EVY Rx#: [id number] Intake, IV Titration 3.696 38.412 Amount Norepinephrine 4 mg In 3.696 38.412 Sodium Chloride 0.9% 250 ml @ 0.04 MCG/KG/MIN 6. 429 mls/hr IV .Q24H EVY Rx#:[id number] Blood Product 310 Rc As-1 Unit 310 [id number] Output: Urine 225 85 Other: Voiding Method Indwelling Catheter Indwelling Catheter Weight 49.1 kg Results CBC & Chem 7: 12/11/18 04:56 12/11/18 04:56 Labs: Abnormal Lab Results - Last 24 Hours (Table) 12/10/18 12/10/18 12/10/18 Range/Units 15:26 15:26 18:47 WBC (3.8-10.6) k/uL RBC 2.59 L (3.80-5.40) m/uL Hgb 8.8 L (11.4-16.0) gm/dL Hct 26.1 L (34.0-46.0) % MCV 100.4 H (80.0-100.0) fL MCHC (31.0-37.0) g/dL RDW 17.3 H (11.5-15.5) % Plt Count 67 L (150-450) k/uL Neutrophils # (Manual) (1.3-7.7) k/uL Lymphocytes # 0.7 L (1.0-4.8) k/uL Lymphocytes # (Manual) (1.0-4.8) k/uL ABG pH (7.35-7.45) ABG pO2 (83-108) mmHg ABG Total CO2 (19-24) mmol/L ABG O2 Saturation (94-97) % Sodium 135 L (137-145) mmol/L Potassium (3.5-5.1) mmol/L Chloride (98-107) mmol/L Carbon Dioxide (22-30) mmol/L BUN 21 H (7-17) mg/dL Glucose 51 L (74-99) mg/dL POC Glucose (mg/dL) <20 L (75-99) mg/dL Calcium 7.6 L (8.4-10.2) mg/dL Ionized Calcium Eve (4.5-5.3) mg/dL Total Protein 4.9 L (6.3-8.2) g/dL Albumin 2.2 L (3.5-5.0) g/dL Urine Protein (Negative) Urine Glucose (UA) (Negative) Urine WBC (0-5) /hpf Hyaline Casts (0-2) /lpf Urine Mucus (None) /hpf Crossmatch 12/10/18 12/10/18 12/10/18 Range/Units 19:10 20:17 20:43 WBC (3.8-10.6) k/uL RBC (3.80-5.40) m/uL Hgb (11.4-16.0) gm/dL Hct (34.0-46.0) % MCV (80.0-100.0) fL MCHC (31.0-37.0) g/dL RDW (11.5-15.5) % Plt Count (150-450) k/uL Neutrophils # (Manual) (1.3-7.7) k/uL Lymphocytes # (1.0-4.8) k/uL Lymphocytes # (Manual) (1.0-4.8) k/uL ABG pH (7.35-7.45) ABG pO2 (83-108) mmHg ABG Total CO2 (19-24) mmol/L ABG O2 Saturation (94-97) % Sodium (137-145) mmol/L Potassium (3.5-5.1) mmol/L Chloride (98-107) mmol/L Carbon Dioxide (22-30) mmol/L BUN (7-17) mg/dL Glucose (74-99) mg/dL POC Glucose (mg/dL) 103 H 39 L 143 H (75-99) mg/dL Calcium (8.4-10.2) mg/dL Ionized Calcium Eve (4.5-5.3) mg/dL Total Protein (6.3-8.2) g/dL Albumin (3.5-5.0) g/dL Urine Protein (Negative) Urine Glucose (UA) (Negative) Urine WBC (0-5) /hpf Hyaline Casts (0-2) /lpf Urine Mucus (None) /hpf Crossmatch 12/10/18 12/10/18 12/10/18 Range/Units 22:39 22:53 23:42 WBC (3.8-10.6) k/uL RBC (3.80-5.40) m/uL Hgb (11.4-16.0) gm/dL Hct (34.0-46.0) % MCV (80.0-100.0) fL MCHC (31.0-37.0) g/dL RDW (11.5-15.5) % Plt Count (150-450) k/uL Neutrophils # (Manual) (1.3-7.7) k/uL Lymphocytes # (1.0-4.8) k/uL Lymphocytes # (Manual) (1.0-4.8) k/uL ABG pH 7.34 L (7.35-7.45) ABG pO2 122 H (83-108) mmHg ABG Total CO2 25 H (19-24) mmol/L ABG O2 Saturation 98.8 H (94-97) % Sodium (137-145) mmol/L Potassium (3.5-5.1) mmol/L Chloride (98-107) mmol/L Carbon Dioxide (22-30) mmol/L BUN (7-17) mg/dL Glucose (74-99) mg/dL POC Glucose (mg/dL) 65 L 138 H (75-99) mg/dL Calcium (8.4-10.2) mg/dL Ionized Calcium Eve (4.5-5.3) mg/dL Total Protein (6.3-8.2) g/dL Albumin (3.5-5.0) g/dL Urine Protein (Negative) Urine Glucose (UA) (Negative) Urine WBC (0-5) /hpf Hyaline Casts (0-2) /lpf Urine Mucus (None) /hpf Crossmatch 12/10/18 12/11/18 12/11/18 Range/Units 23:54 04:04 04:30 WBC (3.8-10.6) k/uL RBC (3.80-5.40) m/uL Hgb (11.4-16.0) gm/dL Hct (34.0-46.0) % MCV (80.0-100.0) fL MCHC (31.0-37.0) g/dL RDW (11.5-15.5) % Plt Count (150-450) k/uL Neutrophils # (Manual) (1.3-7.7) k/uL Lymphocytes # (1.0-4.8) k/uL Lymphocytes # (Manual) (1.0-4.8) k/uL ABG pH (7.35-7.45) ABG pO2 (83-108) mmHg ABG Total CO2 (19-24) mmol/L ABG O2 Saturation (94-97) % Sodium (137-145) mmol/L Potassium (3.5-5.1) mmol/L Chloride (98-107) mmol/L Carbon Dioxide (22-30) mmol/L BUN (7-17) mg/dL Glucose (74-99) mg/dL POC Glucose (mg/dL) 133 H 69 L (75-99) mg/dL Calcium (8.4-10.2) mg/dL Ionized Calcium Eve (4.5-5.3) mg/dL Total Protein (6.3-8.2) g/dL Albumin (3.5-5.0) g/dL Urine Protein 1+ H (Negative) Urine Glucose (UA) Trace H (Negative) Urine WBC 18 H (0-5) /hpf Hyaline Casts 5 H (0-2) /lpf Urine Mucus Occasional H (None) /hpf Crossmatch 12/11/18 12/11/18 12/11/18 Range/Units 04:35 04:56 04:56 WBC 10.9 H (3.8-10.6) k/uL RBC 1.84 L (3.80-5.40) m/uL Hgb 5.8 L* D (11.4-16.0) gm/dL Hct 19.1 L* (34.0-46.0) % MCV 104.0 H (80.0-100.0) fL MCHC 30.2 L (31.0-37.0) g/dL RDW 17.1 H (11.5-15.5) % Plt Count 60 L (150-450) k/uL Neutrophils # (Manual) 10.00 H (1.3-7.7) k/uL Lymphocytes # (1.0-4.8) k/uL Lymphocytes # (Manual) 0.65 L (1.0-4.8) k/uL ABG pH (7.35-7.45) ABG pO2 (83-108) mmHg ABG Total CO2 (19-24) mmol/L ABG O2 Saturation (94-97) % Sodium 134 L (137-145) mmol/L Potassium 3.3 L (3.5-5.1) mmol/L Chloride 109 H (98-107) mmol/L Carbon Dioxide 21 L (22-30) mmol/L BUN 19 H (7-17) mg/dL Glucose 142 H (74-99) mg/dL POC Glucose (mg/dL) 140 H (75-99) mg/dL Calcium 6.2 L* (8.4-10.2) mg/dL Ionized Calcium Eve (4.5-5.3) mg/dL Total Protein 3.3 L (6.3-8.2) g/dL Albumin 1.4 L (3.5-5.0) g/dL Urine Protein (Negative) Urine Glucose (UA) (Negative) Urine WBC (0-5) /hpf Hyaline Casts (0-2) /lpf Urine Mucus (None) /hpf Crossmatch 12/11/18 12/11/18 12/11/18 Range/Units 05:15 06:18 06:18 WBC (3.8-10.6) k/uL RBC (3.80-5.40) m/uL Hgb (11.4-16.0) gm/dL Hct (34.0-46.0) % MCV (80.0-100.0) fL MCHC (31.0-37.0) g/dL RDW (11.5-15.5) % Plt Count (150-450) k/uL Neutrophils # (Manual) (1.3-7.7) k/uL Lymphocytes # (1.0-4.8) k/uL Lymphocytes # (Manual) (1.0-4.8) k/uL ABG pH (7.35-7.45) ABG pO2 (83-108) mmHg ABG Total CO2 (19-24) mmol/L ABG O2 Saturation (94-97) % Sodium (137-145) mmol/L Potassium (3.5-5.1) mmol/L Chloride (98-107) mmol/L Carbon Dioxide (22-30) mmol/L BUN (7-17) mg/dL Glucose (74-99) mg/dL POC Glucose (mg/dL) 156 H (75-99) mg/dL Calcium (8.4-10.2) mg/dL Ionized Calcium Eve 4.4 L (4.5-5.3) mg/dL Total Protein (6.3-8.2) g/dL Albumin (3.5-5.0) g/dL Urine Protein (Negative) Urine Glucose (UA) (Negative) Urine WBC (0-5) /hpf Hyaline Casts (0-2) /lpf Urine Mucus (None) /hpf Crossmatch See Detail 12/11/18 Range/Units 08:05 WBC (3.8-10.6) k/uL RBC (3.80-5.40) m/uL Hgb (11.4-16.0) gm/dL Hct (34.0-46.0) % MCV (80.0-100.0) fL MCHC (31.0-37.0) g/dL RDW (11.5-15.5) % Plt Count (150-450) k/uL Neutrophils # (Manual) (1.3-7.7) k/uL Lymphocytes # (1.0-4.8) k/uL Lymphocytes # (Manual) (1.0-4.8) k/uL ABG pH (7.35-7.45) ABG pO2 (83-108) mmHg ABG Total CO2 (19-24) mmol/L ABG O2 Saturation (94-97) % Sodium (137-145) mmol/L Potassium (3.5-5.1) mmol/L Chloride (98-107) mmol/L Carbon Dioxide (22-30) mmol/L BUN (7-17) mg/dL Glucose (74-99) mg/dL POC Glucose (mg/dL) 71 L (75-99) mg/dL Calcium (8.4-10.2) mg/dL Ionized Calcium Eve (4.5-5.3) mg/dL Total Protein (6.3-8.2) g/dL Albumin (3.5-5.0) g/dL Urine Protein (Negative) Urine Glucose (UA) (Negative) Urine WBC (0-5) /hpf Hyaline Casts (0-2) /lpf Urine Mucus (None) /hpf Crossmatch Microbiology - Last 24 Hours (Table) 12/11/18 04:30 Urine Culture - Preliminary Urine,Catheterized Assessment and Plan Plan: Patient was recently evaluated in the office by Dr. Vaz, and the plan was to recommend comfort care, if repeat CAT scans showed progression. Her performance status was not felt to be sufficient to warrant any aggressive treatment. The patient's clinical course is highly suggestive of continued progression. The esdras blakely desires Comfort Care, which appears to be totally appropriate, according to her primary oncologist evaluation. This was discussed with the family, we'll proceed with the same. Case also discussed with the admitting service. Formal consult is not required
--- NOTE | 2018-12-11 15:14 | P.DS ---
Providers Date of admission: 12/10/18 20:42 Expected date of discharge: 12/11/18 Attending physician: Percy Lilly MD Consults: 12/10/18 20:40 Consult Physician Routine Consulting Provider: Ester Vaz Consult Reason/Comments: Metastatic lung cancer Do you want consulting provider notified?: Yes Primary care physician: Blanca [facility] Course: Discharge Diagnosis: Suspect adrenal crisis Metastatic lug cancer Toxic metabolic encephalopathy New onset seizure Hypoglycemia Shock, hypovolemic Severe Marocytic anemia requiring transfusion Thrombocytopenia Severe protein calorie malnutrition Generalized weakness and debility Stage II decubitus ulcer over the coccyx, present on admission Hospital Course: Patient is a 62-year-old female with a history of metastatic lung cancer, debility, and severe protein calorie malnutrition who presented to the emergency department secondary to new onset seizure. In the emergency department she was found to be severely hypoglycemic and this was treated. She underwent further evaluation with a CT head which showed subacute to acute infarct. This was correlated with MRI and to be more consistent with her metastatic disease with vasogenic edema. Membranes which were made for admission to the ICU. Patient was evaluated and was still obtunded in the ER 2 hours after initial seizure. He came to light at the patient had a fentanyl patch placed earlier that day. Final patch was removed she was given a dose of Narcan and became more arousable. She underwent an ABG which showed an unremarkable CO2 level and her oxygen was within normal limits. She was also noted to be hypotensive on arrival to the ICU systolic blood pressure of 60. She was given approximately 3 L of IV fluids. She still remained hypotensive and was started on norepinephrine. She then had a drop in hemoglobin to 5.8 and was given 1 unit of packed red blood cells. Her poor overall prognosis was discussed with the she has made a DO NOT RESUSCITATE. By the morning of 12/11 she had not had significant improvement. She was still requiring norepine phrine, blood was transfusing, and she was still slightly obtunded. After a lengthy discussion with the family they have noted progressive weakness over the last several months. It was decided to convert to hospice and they were contacted. Patient seen and examined at bedside. Able to tell me that the mask is bothering her and that she is having belly pain Vital signs reviewed and stable. General: On weekly ill-appearing, cachectic, appears older than stated age, mild distress Derm: Multiple areas of ecchymoses over bilateral upper extremities, stage II pressure ulcer over the coccyx warm, dry Head: atraumatic, normocephalic, symmetric Eyes: EOMI, no lid lag, anicteric sclera Mouth: no lip lesion, mucus membranes moist Cardiovascular: S1 and S2 tachycardic, no murmur, positive posterior tibial pulse bilateral, Lungs: Decreased breath sounds bilateral, no rhonchi, no rales , no accessory muscle use Abdominal: soft, nontender to palpation, no guarding, no appreciable organomegaly Ext: Muscle atrophy with diffuse anasarca, no contractures Neuro: CN II-XI grossly intact, no focal neuro deficits Psych awake verbalizing intermittently A total of 40 minutes of time were spent preparing this complex discharge summary . Pertinent Studies: CT brain-focal hypodensity right posterior parietal occipital region could represent area of subacute or chronic ischemia Patient Condition at Discharge: Critical Plan - Discharge Summary Discharge Rx Participant: No New Discharge Prescriptions: No Action Ipratropium-Albuterol Nebulize [Duoneb 0.5 mg-3 mg/3 ml Soln] 3 ml INHALATION RT-BID PRN PRN Reason: Shortness Of Breath Budesonide/Formoterol Fumarate [Symbicort 160-4.5 Mcg Inhaler] 2 puff INHALATION RT-BID oxyCODONE-APAP 10-325MG [Percocet 10-325 mg] 1 tab PO Q6HR PRN PRN Reason: Pain Folic Acid 1 mg PO DAILY Potassium Chloride [Klor-Con 20] 20 meq PO DAILY fentaNYL 25MCG/HR PATCH [Duragesic 25MCG/HR] 1 patch TRANSDERM Q72H Docusate [Colace] 100 mg PO DAILY PRN PRN Reason: Constipation Discharge Medication List Budesonide/Formoterol Fumarate [Symbicort 160-4.5 Mcg Inhaler] 2 puff INHALATION RT-BID 01/07/18 [History] Ipratropium-Albuterol Nebulize [Duoneb 0.5 mg-3 mg/3 ml Soln] 3 ml INHALATION RT-BID PRN 01/07/18 [History] Docusate [Colace] 100 mg PO DAILY PRN 12/10/18 [History] Folic Acid 1 mg PO DAILY 12/10/18 [History] Potassium Chloride [Klor-Con 20] 20 meq PO DAILY 12/10/18 [History] fentaNYL 25MCG/HR PATCH [Duragesic 25MCG/HR] 1 patch TRANSDERM Q72H 12/10/18 [History] oxyCODONE-APAP 10-325MG [Percocet 10-325 mg] 1 tab PO Q6HR PRN 12/10/18 [History] Follow up Appointment(s)/Referral(s): Blanca Moscoso MD [Primary Care Provider] - 1-2 days Discharge Disposition: DISCH TO [facility]
[2018-12-12 10:54] LABS: Hemoglobin A1C 4.5 % (4.0-6.0)
== END 2018-12-11 13:20 | disposition hospice, inpatient (51) | DRG 643 ==
LOC: EC 14:36 → 3SCARD 20:42 → 2SICU 12-11 04:23
PROVIDERS: ADMIT Internal Medicine; ATTEND Internal Medicine
PROC: 30233N1 Transfusion of Nonautologous Red Blood Cells into Peripheral Vein, Percutaneous Approach (ICD-10-PCS; principal; 2018-12-11)
DX: E27.2 Addisonian crisis (principal); E43 Unspecified severe protein-calorie malnutrition; G92 Toxic encephalopathy; G93.6 Cerebral edema; R57.1 Hypovolemic shock; C34.90 Malignant neoplasm of unspecified part of unspecified bronchus or lung; C79.31 Secondary malignant neoplasm of brain; Z68.1 Body mass index [BMI] 19.9 or less, adult; R64 Cachexia; R65.10 Systemic inflammatory response syndrome (SIRS) of non-infectious origin without acute organ dysfunction; F11.20 Opioid dependence, uncomplicated; E16.2 Hypoglycemia, unspecified; D64.9 Anemia, unspecified; D69.6 Thrombocytopenia, unspecified; Z66 Do not resuscitate; Z51.5 Encounter for palliative care; K59.00 Constipation, unspecified; L89.92 Pressure ulcer of unspecified site, stage 2; R62.7 Adult failure to thrive; Z79.51 Long term (current) use of inhaled steroids; Z87.891 Personal history of nicotine dependence; Z79.899 Other long term (current) drug therapy; R53.81 Other malaise; G40.909 Epilepsy, unspecified, not intractable, without status epilepticus; Z87.440 Personal history of urinary (tract) infections
CPT/HCPCS: 36415; 36600; 70450; 71045; 71046; 80053; 81001; 82330; 82533; 82805; 83036; 83735; 83880; 85025; 86850; 86900; 86901; 86920; 87040; 87086; 93005; 94640; 96361; 96374; 96375; 96376; 99291

== ENCOUNTER 2018-12-11 12:53 | Inpatient (IN) | payer MEDICAID ==
[2018-12-11] MEDS ORDERED: ATROPINE OPHTH SOLN 1% 5ML BTL SUBLINGUAL PRN (13:01)
[2018-12-11] MEDS ORDERED: LORazepam 2 MG/ML INJ IV PRN (13:01)
[2018-12-11] MEDS ORDERED: ONDANSETRON 4 MG/2 ML VIAL IVP PRN (13:01)
[2018-12-11] MEDS ORDERED: ACETAMINOPHEN SUPPOSITORY 650 MG SUPP RECTAL PRN (13:01)
[2018-12-11] MEDS ORDERED: BISACODYL 10 MG SUPP RECTAL PRN (13:05)
[2018-12-11] MEDS ORDERED: SCOPOLAMINE 1.5MG/72HR PATCH TRANSDERM SCH (13:15)
[2018-12-11] MEDS ORDERED: DEXTROSE 10% IN WATER 1,000 ML with SODIUM CHLORIDE 2.5MEQ/ML VIAL 153.8 MEQ IV SCH (13:45)
[2018-12-11] MEDS: MORPHINE SULFATE 2 MG/ML SYRINGE IV PRN ×3 (15:34→22:35)
[2018-12-11 16:01] VITALS: PULSE 111; RESP 10; TEMP 98.1
--- NOTE | 2018-12-11 16:52 | P.HPIM ---
History of Present Illness H&P Date: 12/11/18 Chief Complaint: Altered mentation Patient is a 62-year-old female with a history of metastatic lung cancer, debility, and severe protein calorie malnutrition who presented to the emergency department secondary to new onset seizure. In the emergency department she was found to be severely hypoglycemic and this was treated. She underwent further evaluation with a CT head which showed subacute to acute infarct. This was correlated with MRI and to be more consistent with her metastatic disease with vasogenic edema. Arrangements were made for admission to the ICU. Patient was evaluated and was still obtunded in the ER 2 hours after initial seizure. He came to light at the patient had a fentanyl patch placed earlier that day. Final patch was removed she was given a dose of Narcan and became more arousable. She underwent an ABG which showed an unremarkable CO2 level and her oxygen was within normal limits. She was also noted to be hypotensive on arrival to the ICU systolic blood pressure of 60. She was given approximately 3 L of IV fluids. She remained hypotensive and was started on norepinephrine. She then had a drop in hemoglobin to 5.8 and was given 1 unit of packed red blood cells. Her poor overall prognosis was discussed with the she has made a DO NOT RESUSCITATE. By the morning of 12/11 she had not had significant improvement. She was still requiring norepinephrine, blood was transfusing, and she was still slightly obtunded. After a lengthy discussion with the family they have noted progressive weakness over the last several months. She has subsequenly been admitted to hospice. Review of Systems ROS unobtainable: due to mental status Past Medical History Past Medical History: Cancer, Respiratory Disorder Additional Past Medical History / Comment(s): masses in lung and adrenal gland, UTI, Stage IV lung CA 12/2017 History of Any Multi-Drug Resistant Organisms: None Reported Past Surgical History: No Surgical Hx Reported Additional Past Surgical History / Comment(s): d and c Past Anesthesia/Blood Transfusion Reactions: No Reported Reaction Past Psychological History: No Psychological Hx Reported Smoking Status: Former smoker - Past Family History family Family Medical History: No Reported History Medications and Allergies Home Medications Medication Instructions Recorded Confirmed Type Budesonide/Formoterol Fumarate 2 puff INHALATION RT-BID 01/07/18 12/11/18 History [Symbicort 160-4.5 Mcg Inhaler] Ipratropium-Albuterol Nebulize 3 ml INHALATION RT-BID PRN 01/07/18 12/11/18 History [Duoneb 0.5 mg-3 mg/3 ml Soln] Docusate [Colace] 100 mg PO DAILY PRN 12/10/18 12/11/18 History Folic Acid 1 mg PO DAILY 12/10/18 12/11/18 History Potassium Chloride [Klor-Con 20] 20 meq PO DAILY 12/10/18 12/11/18 History fentaNYL 25MCG/HR PATCH [Duragesic 1 patch TRANSDERM Q72H 12/10/18 12/11/18 History 25MCG/HR] oxyCODONE-APAP 10-325MG [Percocet 1 tab PO Q6HR PRN 12/10/18 12/11/18 History 10-325 mg] Allergies Allergy/AdvReac Type Severity Reaction Status Date / Time No Known Allergies Allergy Verified 12/11/18 14:43 Physical Exam Osteopathic Statement: *. No significant issues noted on an osteopathic struc tural exam other than those noted in the History and Physical/Consult. Vitals: Intake and Output 12/11/18 12/11/18 12/11/18 06:59 14:59 22:59 Other: Weight 49.1 kg General: ill appearing, cachetic, temporal wasting , no distress, appears older than stated age Derm: no unusual rashes/lesions, multiple areas of ecchymosis on bilateral upper extremities, warm, dry Head: atraumatic, normocephalic, symmetric Eyes: EOMI, no lid lag, anicteric sclera, pupils equal round reactive to light ENT: Nose and ears atraumatic, no thrush, no pharyngeal erythema Neck: No thyromegaly, no cervical lymphadenopathy, trachea midline, supple Mouth: no lip lesion, mucus membranes dry Cardiovascular: S1S2 reg, no murmur, positive posterior tibial pulse bilateral, diffuse anasarca, capillary refill less than 2 seconds Lungs: CTA bilateral, no rhonchi, no rales , no accessory muscle use Abdominal: soft, nontender to palpation, no guarding, no appreciable organomeg mattie, normal bowel sounds Ext: + gross muscle atrophy, no contractures, Neuro: CN II-XI grossly intact, light touch intact all 4 extremities Psych: lethargic, not verbalizing at tis time. Thrombosis Risk Factor Assmnt - DVT/VTE Prophylaxis DVT/VTE Prophylaxis: Low risk, early ambulation encouraged Assessment and Plan Assessment: Suspect adrenal crisis Metastatic lug cancer Toxic metabolic encephalopathy New onset seizure Hypoglycemia Shock, hypovolemic Severe Marocytic anemia requiring transfusion Thrombocytopenia Severe protein calorie malnutrition Generalized weakness and debility Stage II decubitus ulcer over the coccyx, present on admission Comfort care orders: Ativan, morphine, Zofran, scopolamine, Atropine, and rectal Tylenol Continue with hospice care.
--- NOTE | 2018-12-12 20:53 | P.DS ---
Providers Date of admission: 12/11/18 13:25 Expected date of discharge: 12/12/18 Attending physician: Viktoriya Duran DO [facility] Course: Discharge Diagnosis: Shock, hypovolemic Metastatic adenocarcinoma of the lung Toxic metabolic encephalopathy New onset seizure Hypoglycemia Severe Marocytic anemia requiring transfusion Thrombocytopenia Severe protein calorie malnutrition Generalized weakness and debility Stage II decubitus ulcer over the coccyx, present on admission Hospital Course: Patient is a 62-year-old female with a history of metastatic lung cancer, debility, and severe protein calorie malnutrition who presented to the emergency department secondary to new onset seizure. In the emergency d epartment she was found to be severely hypoglycemic and this was treated. She underwent further evaluation with a CT head which showed subacute to acute infarct. This was correlated with MRI and to be more consistent with her metastatic disease with vasogenic edema. Arrangements were made for admission to the ICU. Patient was evaluated and was still obtunded in the ER 2 hours after initial seizure. He came to light at the patient had a fentanyl patch placed earlier that day. Final patch was removed she was given a dose of Narcan and became more arousable. She underwent an ABG which showed an unremarkable CO2 level and her oxygen was within normal limits. She was also noted to be hypotensive on arrival to the ICU systolic blood pressure of 60. She was given approximately 3 L of IV fluids. She remained hypotensive and was started on norepinephrine. She then had a drop in hemoglobin to 5.8 and was given 1 unit of packed red blood cells. Her poor overall prognosis was discussed with the she has made a DO NOT RESUSCITATE. By the morning of 12/11 she had not had significant improvement. She was still requiring norepinephrine, blood was transfusing, and she was still slightly obtunded. After a lengthy discussion with the family they have noted progressive weakness over the last several months. She was subsequenly admitted to hospice. She was placed on as needed morphine, ativan, scopalamie, and atropine. She comfortably on the morning of 12/12. A total of 20 minutes of time were spent preparing this complex discharge summary . Plan - Discharge Summary New Discharge Prescriptions: No Action Ipratropium-Albuterol Nebulize [Duoneb 0.5 mg-3 mg/3 ml Soln] 3 ml INHALATION RT-BID PRN PRN Reason: Shortness Of Breath Budesonide/Formoterol Fumarate [Symbicort 160-4.5 Mcg Inhaler] 2 puff INHALATION RT-BID oxyCODONE-APAP 10-325MG [Percocet 10-325 mg] 1 tab PO Q6HR PRN PRN Reason: Pain Folic Acid 1 mg PO DAILY Potassium Chloride [Klor-Con 20] 20 meq PO DAILY fentaNYL 25MCG/HR PATCH [Duragesic 25MCG/HR] 1 patch TRANSDERM Q72H Docusate [Colace] 100 mg PO DAILY PRN PRN Reason: Constipation Discharge Medication List Budesonide/Formoterol Fumarate [Symbicort 160-4.5 Mcg Inhaler] 2 puff INHALATION RT-BID 01/07/18 [History] Ipratropium-Albuterol Nebulize [Duoneb 0.5 mg-3 mg/3 ml Soln] 3 ml INHALATION RT-BID PRN 01/07/18 [History] Docusate [Colace] 100 mg PO DAILY PRN 12/10/18 [History] Folic Acid 1 mg PO DAILY 12/10/18 [History] Potassium Chloride [Klor-Con 20] 20 meq PO DAILY 12/10/18 [History] fentaNYL 25MCG/HR PATCH [Duragesic 25MCG/HR] 1 patch TRANSDERM Q72H 12/10/18 [History] oxyCODONE-APAP 10-325MG [Percocet 10-325 mg] 1 tab PO Q6HR PRN 12/10/18 [History] Discharge Disposition: - Preliminary Cause of Preliminary Cause of : metastatic lung cancer
== END 2018-12-12 07:14 | disposition expired | DRG 180 ==
LOC: 2SICU 13:25
PROVIDERS: ADMIT Internal Medicine; ATTEND Internal Medicine
DX: C34.90 Malignant neoplasm of unspecified part of unspecified bronchus or lung (principal); E43 Unspecified severe protein-calorie malnutrition; G92 Toxic encephalopathy; G93.6 Cerebral edema; R64 Cachexia; Z68.1 Body mass index [BMI] 19.9 or less, adult; C79.31 Secondary malignant neoplasm of brain; Z51.5 Encounter for palliative care; D64.9 Anemia, unspecified; D69.6 Thrombocytopenia, unspecified; E16.2 Hypoglycemia, unspecified; L89.152 Pressure ulcer of sacral region, stage 2; R56.9 Unspecified convulsions; R57.1 Hypovolemic shock; Z79.51 Long term (current) use of inhaled steroids; Z87.891 Personal history of nicotine dependence; K59.00 Constipation, unspecified; Z66 Do not resuscitate; Z79.891 Long term (current) use of opiate analgesic; Z79.899 Other long term (current) drug therapy